=== PATIENT | female | born 1935 | race Caucasian/White ===

== ENCOUNTER 2018-10-14 07:36 | Emergency (ER) | payer MEDICARE, BC ==
[2018-10-14 07:42] VITALS: RESP 16
[2018-10-14 08:22] LABS: Basophils % (A) 1 %; Eosinophils # (A) 0.1 k/uL (0-0.7); Eosinophils % (A) 2 %; HCT 37.9 % (34.0-46.0); HGB 12.5 gm/dL (11.4-16.0); Lymphocytes % (A) 20 %; MCH 29.6 pg (25.0-35.0); MCHC 32.8 g/dL (31.0-37.0); MCV 90.2 fL (80.0-100.0); Mean Platelet Volume 7.8; Monocytes # (A) 0.4 k/uL (0-1.0); Monocytes % (A) 7 %; Neutrophils # (A) 3.4 k/uL (1.3-7.7); Neutrophils % (A) 68 %; Platelet Count 133 k/uL (150-450); RBC 4.21 m/uL (3.80-5.40)
--- NOTE | 2018-10-14 08:26 | ED ---
General Adult HPI - General Chief complaint: ENT Stated complaint: Nosebleed Time Seen by Provider: 10/14/18 07:50 Source: patient, RN notes reviewed Mode of arrival: ambulatory Limitations: no limitations - History of Present Illness Initial comments: Patient is a pleasant 83-year-old female presenting to the emergency Department with complaints of epistaxis. Onset of symptoms was around an hour prior to arrival. Epistaxis with spontaneous. No trauma. No history of chronic epistaxis. Patient is on Coumadin with history of blood clots. Patient did have her INR checked last week at 4.4. Patient states her Coumadin was held for 2 days and then restarted. Patient denies any other area of bleeding. No pain. No weakness or dyspnea. - Related Data Home Medications Medication Instructions Recorded Confirmed Bumetanide [BUMEX] 2 mg PO DAILY 10/02/15 10/14/18 Metolazone [Zaroxolyn] 2.5 mg PO TUTH 10/02/15 10/14/18 Vit C/E/Zn/Coppr/Lutein/Zeaxan 1 cap PO BID 12/12/15 10/14/18 [Preservision Areds 2 Softgel] Cholecalciferol [Vitamin D3 (25 2,000 unit PO DAILY 10/14/18 10/14/18 Mcg = 1000 Iu)] Dulaglutide [Trulicity] 1.5 mg SQ FR 10/14/18 10/14/18 INSULIN ASPART (NovoLOG) [NovoLOG 5 unit SQ AC-TID 10/14/18 10/14/18 (formulary)] Insulin Glargine,Hum.rec.anlog 21 units SQ DAILY 10/14/18 10/14/18 [Jim Clark] Magnesium 400 mg PO HS 10/14/18 10/14/18 Potassium Chloride [Klor-Con 20] 20 meq PO DAILY 10/14/18 10/14/18 Warfarin Sodium [Coumadin] 3 mg PO TUTH 10/14/18 10/14/18 Warfarin [Coumadin] 1.5 mg PO SUMOWEFRSA 10/14/18 10/14/18 sitaGLIPtin PHOS/metFORMIN HCL 1 tab PO BID 10/14/18 10/14/18 [Janumet 50-500 mg Tablet] Allergies Allergy/AdvReac Type Severity Reaction Status Date / Time azithromycin Allergy Unknown Verified 10/14/18 08:27 erythromycin base Allergy Dyspnea Verified 10/14/18 08:27 sucralfate [From Carafate] Allergy Unknown Verified 10/14/18 08:27 Phenothiazines AdvReac Severe Hallucinati Verified 10/14/18 08:27 ons heparin AdvReac blood clots Verified 10/14/18 08:27 metoclopramide HCl AdvReac Hallucinati Verified 10/14/18 08:27 [From Reglan] ons all -mycins Allergy Dyspnea Uncoded 10/14/18 07:42 Review of Systems ROS Statement: Those systems with pertinent positive or pertinent negative responses have been documented in the HPI. ROS Other: All systems not noted in ROS Statement are negative. Constitutional: Denies: fever Eyes: Denies: eye pain ENT: Reports: epistaxis. 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, LUNGS UNDER PRESSURE DUE TO OSTEOPEROSIS History of Any Multi-Drug Resistant Organisms: None Reported Past Surgical History: Cardiac Ablation, Hysterectomy, Pacemaker, Tonsillectomy Additional Past Surgical History / Comment(s): cataracts Past Anesthesia/Blood Transfusion Reactions: Previous Problems w/ Anesthesia, Motion Sickness Additional Past Anesthesia/Blood Transfusion Reaction / Comment(s): "slept for three days after anesthesia"- vertigo Type of Cardiac Device: Permanent Pacemaker Device Placement Date:: 10/01/2010 [facility] Past Psychological History: Anxiety Smoking Status: Never smoker Past Alcohol Use History: None Reported Past Drug Use History: None Reported - Past Family History Sister(s) Family Medical History: Cancer (ovariancancer) Additional Family Medical History / Comment(s): ovarian, squamous in the mouth General Exam Limitations: no limitations General appearance: alert, in no apparent distress Head exam: Present: atraumatic Eye exam: Present: normal appearance ENT exam: Present: normal oropharynx, other (Fresh blood right lower anterior septum without active bleeding.) Neck exam: Present: normal inspection Respiratory exam: Present: normal lung sounds bilaterally Cardiovascular Exam: Present: regular rate, normal rhythm, systolic murmur GI/Abdominal exam: Present: soft. Absent: tenderness Extremities exam: Present: normal inspection Neurological exam: Present: alert Psychiatric exam: Present: normal affect, normal mood Skin exam: Present: normal color Course Vital Signs 10/14/18 10/14/18 07:38 08:34 Temperature 98 F Pulse Rate 89 84 Respiratory 16 Rate Blood Pressure 161/74 108/65 O2 Sat by Pulse 97 Oximetry Medical Decision Making - Medical Decision Making Patient reevaluated and resting comfortably in bed. Patient and family updated on results and need for follow-up. No epistaxis to this point. - Lab Data Result diagrams: 10/14/18 08:10 10/14/18 08:10 Lab Results 10/14/18 10/14/18 10/14/18 Range/Units 08:10 08:10 08:10 WBC 5.0 (3.8-10.6) k/uL RBC 4.21 (3.80-5.40) m/uL Hgb 12.5 (11.4-16.0) gm/dL Hct 37.9 (34.0-46.0) % MCV 90.2 (80.0-100.0) fL MCH 29.6 (25.0-35.0) pg MCHC 32.8 (31.0-37.0) g/dL RDW 15.0 (11.5-15.5) % Plt Count 133 L (150-450) k/uL Neutrophils % 68 % Lymphocytes % 20 % Monocytes % 7 % Eosinophils % 2 % Basophils % 1 % Neutrophils # 3.4 (1.3-7.7) k/uL Lymphocytes # 1.0 (1.0-4.8) k/uL Monocytes # 0.4 (0-1.0) k/uL Eosinophils # 0.1 (0-0.7) k/uL Basophils # 0.0 (0-0.2) k/uL PT 15.4 H (9.0-12.0) sec INR 1.5 H (<1.2) APTT 26.4 (22.0-30.0) sec Sodium 140 (137-145) mmol/L Potassium 3.3 L (3.5-5.1) mmol/L Chloride 100 (98-107) mmol/L Carbon Dioxide 34 H (22-30) mmol/L Anion Gap 6 mmol/L BUN 31 H (7-17) mg/dL Creatinine 0.88 (0.52-1.04) mg/dL Est GFR (CKD-EPI)AfAm 70 (>60 ml/min/1.73 sqM) Est GFR (CKD-EPI)NonAf 61 (>60 ml/min/1.73 sqM) Glucose 105 H (74-99) mg/dL Calcium 9.5 (8.4-10.2) mg/dL Total Bilirubin 0.6 (0.2-1.3) mg/dL AST 45 H (14-36) U/L ALT 36 (9-52) U/L Alkaline Phosphatase 75 (38-126) U/L Total Protein 6.6 (6.3-8.2) g/dL Albumin 3.9 (3.5-5.0) g/dL Disposition Clinical Impression: Epistaxis Disposition: HOME SELF-CARE Condition: Stable Instructions (If sedation given, give patient instructions): Nosebleed (ED) Additional Instructions: Please follow-up with primary care physician in the beginning of the week. Please discuss with your primary care physician regarding Coumadin dosing at that time. If bleeding returns, please hold pressure with nasal clamps for at least 10 minutes. If unable to control bleeding return to emergency department. Return for uncontrolled bleeding, bleeding from other areas, weakness, worsening symptoms or other concerns. Is patient prescribed a controlled substance at d/c from ED?: No Referrals: Noemi Pope MD [Primary Care Provider] - 1-2 days Time of Disposition: 08:51
[2018-10-14 08:31] LABS: INR 1.5 (<1.2); Partial Thromboplastin Time 26.4 sec (22.0-30.0); Prothrombin Time 15.4 sec (9.0-12.0)
[2018-10-14 08:32] LABS: Albumin 3.9 g/dL (3.5-5.0); Calcium 9.5 mg/dL (8.4-10.2); Potassium 3.3 mmol/L (3.5-5.1); Total Bilirubin 0.6 mg/dL (0.2-1.3); Total Protein 6.6 g/dL (6.3-8.2)
[2018-10-14 09:05] VITALS: BP 138/70; PULSE 87; TEMP 97.8
== END 2018-10-14 09:04 | disposition home or self-care (01) ==
LOC: EC 07:36
DX: R04.0 Epistaxis (principal); R01.1 Cardiac murmur, unspecified; I48.91 Unspecified atrial fibrillation; E11.9 Type 2 diabetes mellitus without complications; E78.5 Hyperlipidemia, unspecified; Z88.1 Allergy status to other antibiotic agents; Z88.8 Allergy status to other drugs, medicaments and biological substances; Z79.01 Long term (current) use of anticoagulants; Z79.4 Long term (current) use of insulin; Z79.899 Other long term (current) drug therapy; Z85.43 Personal history of malignant neoplasm of ovary; Z86.718 Personal history of other venous thrombosis and embolism; Z86.73 Personal history of transient ischemic attack (TIA), and cerebral infarction without residual deficits; Z95.0 Presence of cardiac pacemaker; Z98.890 Other specified postprocedural states
CPT/HCPCS: 36415; 80053; 85025; 85610; 85730; 99283

== ENCOUNTER 2018-10-21 18:48 | Emergency (ER) | payer MEDICARE, BC ==
[2018-10-21 18:54] VITALS: RESP 16
[2018-10-21] MEDS ORDERED: OXYMETAZOLINE 0.05% NASL SPRAY 1 SPRAY BOTTLE NASAL STA (18:58)
--- NOTE | 2018-10-21 19:07 | ED ---
General Adult HPI - General Chief complaint: ENT Stated complaint: Nose Bleed Time Seen by Provider: 10/21/18 18:58 Source: patient, EMS, RN notes reviewed, old records reviewed Mode of arrival: EMS Limitations: no limitations - History of Present Illness Initial comments: 83-year-old female patient anticoagulated on Coumadin for atrial fibrillation presents to ED for epistaxis. Patient reports that approximately one hour prior to presentation she began bleeding from her right nare. Patient had a similar occurrence one week ago which resolved with nasal clamp. She reports that her INR was within a couple limits on Tuesday. Patient denies any complaints at this time, denies any pain, denies any shortness of breath. Systemic: Pt denies fatigue, fever/chills, rash. Pt denies weakness, night sweats, weight loss. Neuro: Pt denies headache, visual disturbances, syncope or pre-syncope. HEENT: Pt denies ocular discharge or irritation, otalgia, rhinorrhea, pharyngitis or notable lymphadenopathy. Cardiopulmonary: Pt denies chest pain, SOB, heart palpitations, dyspnea on exertion. Abdominal/GI: Pt denies abdominal pain, n/v/d. : Pt denies dysuria, burning w/ urination, frequency/urgency. Denies new onset urinary or bowel incontinence. MSK: Pt denies myalgia, loss of strength or function in extremities. Neuro: Pt denies new onset weakness, paresthesias. - Related Data Home Medications Medication Instructions Recorded Confirmed Bumetanide [BUMEX] 2 mg PO DAILY 10/02/15 10/14/18 Metolazone [Zaroxolyn] 2.5 mg PO TUTH 10/02/15 10/14/18 Vit C/E/Zn/Coppr/Lutein/Zeaxan 1 cap PO BID 12/12/15 10/14/18 [Preservision Areds 2 Softgel] Cholecalciferol [Vitamin D3 (25 2,000 unit PO DAILY 10/14/18 10/14/18 Mcg = 1000 Iu)] Dulaglutide [Trulicity] 1.5 mg SQ FR 10/14/18 10/14/18 INSULIN ASPART (NovoLOG) [NovoLOG 5 unit SQ AC-TID 10/14/18 10/14/18 (formulary)] Insulin Glargine,Hum.rec.anlog 21 units SQ DAILY 10/14/18 10/14/18 [[place]hadiao Solostar] Magnesium 400 mg PO HS 10/14/18 10/14/18 Potassium Chloride [Klor-Con 20] 20 meq PO DAILY 10/14/18 10/14/18 Warfarin Sodium [Coumadin] 3 mg PO TUTH 10/14/18 10/14/18 Warfarin [Coumadin] 1.5 mg PO SUMOWEFRSA 10/14/18 10/14/18 sitaGLIPtin PHOS/metFORMIN HCL 1 tab PO BID 10/14/18 10/14/18 [Janumet 50-500 mg Tablet] Allergies Allergy/AdvReac Type Severity Reaction Status Date / Time azithromycin Allergy Unknown Verified 10/21/18 18:56 erythromycin base Allergy Dyspnea Verified 10/21/18 18:56 sucralfate [From Carafate] Allergy Unknown Verified 10/21/18 18:56 Phenothiazines AdvReac Severe Hallucinati Verified 10/21/18 18:56 ons heparin AdvReac blood clots Verified 10/21/18 18:56 metoclopramide HCl AdvReac Hallucinati Verified 10/21/18 18:56 [From Reglan] ons all -mycins Allergy Dyspnea Uncoded 10/21/18 18:56 Review of Systems ROS Statement: Those systems with pertinent positive or pertinent negative responses have been documented in the HPI. ROS Other: All systems not noted in ROS Statement are negative. 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, LUNGS UNDER PRESSURE DUE TO OSTEOPEROSIS History of Any Multi-Drug Resistant Organisms: None Reported Past Surgical History: Cardiac Ablation, Hysterectomy, Pacemaker, Tonsillectomy Additional Past Surgical History / Comment(s): cataracts Past Anesthesia/Blood Transfusion Reactions: Previous Problems w/ Anesthesia, Motion Sickness Additional Past Anesthesia/Blood Transfusion Reaction / Comment(s): "slept for three days after anesthesia"- vertigo Type of Cardiac Device: Permanent Pacemaker Device Placement Date:: 10/01/2010 [facility] Past Psychological History: Anxiety Smoking Status: Never smoker Past Alcohol Use History: None Reported Past Drug Use History: None Reported - Past Family History Sister(s) Family Medical History: Cancer (ovariancancer) Additional Family Medical History / Comment(s): ovarian, squamous in the mouth General Exam - General Exam Comments Initial Comments: Constitutional: NAD, AOX3, Pt has pleasant affect. HEENT: NC/AT, trachea midline, neck supple, no lymphadenopathy. Posterior pharynx non erythematous, without exudates. External ears appear normal, without discharge. Mucous membranes moist. Eyes PERRLA, EOM intact. There is no scleral icterus. No pallor noted. Dried blood noted in right nare, left nare wnl. Cardiopulmonary: RRR, no murmurs, rubs or gallops, no JVD noted. Lungs CTAB in anterior and posterior lozano. No peripheral edema. Abdominal exam: Abdomen soft and non-distended. Abdomen non-tender to palpation in all 4 quadrants. Bowel sounds active in LLQ. No hepatosplenomegaly. No ecchymosis Neuro: CN II-XII grossly intact. No nuchal rigidity. No raccon eyes, no carpenter sign, no hemotympanum. No cervical spinal tenderness. MSK: No posterior calf tenderness bilaterally, homans sign negative bilaterally. Posterior tibialis and radial pulse +2 bilaterally. Sensation intact in upper and lower extremities. Full active ROM in upper and lower extremities, 5/5 stregnth. Limitations: no limitations Course Vital Signs 10/21/18 18:49 Temperature 98.4 F Pulse Rate 77 Respiratory 16 Rate Blood Pressure 113/76 O2 Sat by Pulse 95 Oximetry Medical Decision Making - Medical Decision Making 83-year-old female patient anticoagulated on Coumadin for atrial fibrillation presents to ED for epistaxis. Patient reports that approximately one hour prior to presentation she began bleeding from her right nare. Patient had a similar occurrence one week ago which resolved with nasal clamp. She reports that her INR was within a couple limits on Tuesday. Patient denies any complaints at this time, denies any pain, denies any shortness of breath. Patient vital signs stable, afebrile. Physical exam displayed dried blood noted in R nare. Laboratory investigations non-impressive. INR 1.8. Epistaxis resolved after Afrin, nasal clamp. Patient discharged, follow up with primary care provider, will return to ER if condition worsens. Case discussed with Dr. Hallman. - Lab Data Result diagrams: 10/21/18 19:24 10/21/18 19:24 Lab Results 10/21/18 10/21/18 10/21/18 Range/Units 19:24 19:24 19:24 WBC 6.3 (3.8-10.6) k/uL RBC 3.88 (3.80-5.40) m/uL Hgb 11.4 (11.4-16.0) gm/dL Hct 34.8 (34.0-46.0) % MCV 89.5 (80.0-100.0) fL MCH 29.5 (25.0-35.0) pg MCHC 32.9 (31.0-37.0) g/dL RDW 14.1 (11.5-15.5) % Plt Count 144 L (150-450) k/uL Neutrophils % 68 % Lymphocytes % 21 % Monocytes % 7 % Eosinophils % 2 % Basophils % 0 % Neutrophils # 4.2 (1.3-7.7) k/uL Lymphocytes # 1.3 (1.0-4.8) k/uL Monocytes # 0.5 (0-1.0) k/uL Eosinophils # 0.1 (0-0.7) k/uL Basophils # 0.0 (0-0.2) k/uL PT 17.5 H (9.0-12.0) sec INR 1.8 H (<1.2) APTT 28.5 (22.0-30.0) sec Sodium 139 (137-145) mmol/L Potassium 3.5 (3.5-5.1) mmol/L Chloride 99 (98-107) mmol/L Carbon Dioxide 32 H (22-30) mmol/L Anion Gap 8 mmol/L BUN 39 H (7-17) mg/dL Creatinine 0.97 (0.52-1.04) mg/dL Est GFR (CKD-EPI)AfAm 62 (>60 ml/min/1.73 sqM) Est GFR (CKD-EPI)NonAf 54 (>60 ml/min/1.73 sqM) Glucose 127 H (74-99) mg/dL Calcium 9.4 (8.4-10.2) mg/dL Total Bilirubin 0.3 (0.2-1.3) mg/dL AST 31 (14-36) U/L ALT 26 (9-52) U/L Alkaline Phosphatase 60 (38-126) U/L Total Protein 6.3 (6.3-8.2) g/dL Albumin 3.8 (3.5-5.0) g/dL Disposition Clinical Impression: Anterior epistaxis Disposition: HOME SELF-CARE Condition: Stable Instructions (If sedation given, give patient instructions): Nosebleed (ED) Additional Instructions: Patient to adhere to previously discussed treatment plan and will take medication(s) as directed. Patient to follow up with PCP in 1-2 days. Patient to return to ED if symptoms do not improve. Follow-up with primary care provider in 1-2 days. Return to ER condition worsens. Is patient prescribed a controlled substance at d/c from ED?: No Referrals: Noemi Pope MD [Primary Care Provider] - 1-2 days
[2018-10-21 19:43] LABS: Basophils % (A) 0 %; Eosinophils # (A) 0.1 k/uL (0-0.7); Eosinophils % (A) 2 %; HCT 34.8 % (34.0-46.0); HGB 11.4 gm/dL (11.4-16.0); Lymphocytes # (A) 1.3 k/uL (1.0-4.8); Lymphocytes % (A) 21 %; MCH 29.5 pg (25.0-35.0); MCHC 32.9 g/dL (31.0-37.0); MCV 89.5 fL (80.0-100.0); Mean Platelet Volume 7.5; Monocytes # (A) 0.5 k/uL (0-1.0); Monocytes % (A) 7 %; Neutrophils # (A) 4.2 k/uL (1.3-7.7); Neutrophils % (A) 68 %; Platelet Count 144 k/uL (150-450); RBC 3.88 m/uL (3.80-5.40); RDW 14.1 % (11.5-15.5); WBC 6.3 k/uL (3.8-10.6)
[2018-10-21 19:57] LABS: INR 1.8 (<1.2); Partial Thromboplastin Time 28.5 sec (22.0-30.0); Prothrombin Time 17.5 sec (9.0-12.0)
[2018-10-21 20:19] LABS: Albumin 3.8 g/dL (3.5-5.0); Calcium 9.4 mg/dL (8.4-10.2); Potassium 3.5 mmol/L (3.5-5.1); Total Bilirubin 0.3 mg/dL (0.2-1.3); Total Protein 6.3 g/dL (6.3-8.2)
[2018-10-21 20:57] VITALS: BP 109/59; PULSE 84; TEMP 97.2
== END 2018-10-21 20:50 | disposition home or self-care (01) ==
LOC: EC 18:48
DX: R04.0 Epistaxis (principal); I48.91 Unspecified atrial fibrillation; E11.9 Type 2 diabetes mellitus without complications; Z79.4 Long term (current) use of insulin; Z79.01 Long term (current) use of anticoagulants; Z79.899 Other long term (current) drug therapy; Z88.1 Allergy status to other antibiotic agents; Z88.8 Allergy status to other drugs, medicaments and biological substances; Z95.0 Presence of cardiac pacemaker; Z86.73 Personal history of transient ischemic attack (TIA), and cerebral infarction without residual deficits; Z86.718 Personal history of other venous thrombosis and embolism; Z85.43 Personal history of malignant neoplasm of ovary
CPT/HCPCS: 36415; 80053; 85025; 85610; 85730; 99284

== ENCOUNTER 2019-01-30 07:43 | Inpatient (IN) | payer MEDICARE, BC ==
--- NOTE | 2019-01-30 08:24 | XR ---
KUB HISTORY: Bloating and constipation Frontal KUB submitted and correlated to prior exam 11/12/2014 There are multiple air-fluid levels with gas distended loops of bowel present. Intracardiac pacemaker leads are present. Bone mineralization is reduced. There are dense vascular calcifications present. Retained fecal debris is present at the level of the rectum. No evident pneumoperitoneum. Suspect the heart is enlarged. IMPRESSION: Correlate for bowel obstruction, possible fecal impaction, additional findings above.
--- NOTE | 2019-01-30 08:25 | ED ---
Abdominal Pain HPI - General Chief Complaint: Abdominal Pain Stated Complaint: constipation Time Seen by Provider: 01/30/19 07:46 Source: patient, EMS, RN notes reviewed Mode of arrival: EMS Limitations: no limitations - History of Present Illness Initial Comments: This an 84-year-old female presents emergency Department chief complaint of abdominal bloating, constipation. She states she has not had a bowel movement in approximately. She states that she has taken at [place] relax but states that she also takes something daily with stool softer and it. Patient denies any dysuria, hematuria patient states that she feels that she has to go but she's had no stool output. Patient currently resides at [facility]. She denies any severe abdominal pain, chest pain or shortness breath. Patient denies any neck pain, flank pain - Related Data Home Medications Medication Instructions Recorded Confirmed Bumetanide [BUMEX] 2 mg PO DAILY 10/02/15 01/30/19 Metolazone [Zaroxolyn] 2.5 mg PO TUTH 10/02/15 01/30/19 Vit C/E/Zn/Coppr/Lutein/Zeaxan 1 cap PO BID 12/12/15 01/30/19 [Preservision Areds 2 Softgel] Cholecalciferol [Vitamin D3 (25 2,000 unit PO DAILY 10/14/18 01/30/19 Mcg = 1000 Iu)] Dulaglutide [Trulicity] 1.5 mg SQ FR 10/14/18 01/30/19 INSULIN ASPART (NovoLOG) [NovoLOG 5 unit SQ AC-TID 10/14/18 01/30/19 (formulary)] Insulin Glargine,Hum.rec.anlog 21 units SQ DAILY 10/14/18 01/30/19 [[place]matt Solostrandal] Potassium Chloride [Klor-Con 20] 20 meq PO DAILY 10/14/18 01/30/19 Warfarin Sodium [Coumadin] 3 mg PO TUTH 10/14/18 01/30/19 Warfarin [Coumadin] 1.5 mg PO SUMOWEFRSA 10/14/18 01/30/19 sitaGLIPtin PHOS/metFORMIN HCL 1 tab PO BID 10/14/18 01/30/19 [Janumet 50-500 mg Tablet] Magnesium Oxide [Mag-Ox] 400 mg PO HS 01/30/19 01/30/19 Allergies Allergy/AdvReac Type Severity Reaction Status Date / Time azithromycin Allergy Unknown Verified 01/30/19 08:02 erythromycin base Allergy Dyspnea Verified 01/30/19 08:02 sucralfate [From Carafate] Allergy Unknown Verified 01/30/19 08:02 Phenothiazines AdvReac Severe Hallucinati Verified 01/30/19 08:02 ons heparin AdvReac blood clots Verified 01/30/19 08:02 metoclopramide HCl AdvReac Hallucinati Verified 01/30/19 08:02 [From Reglan] ons all -mycins Allergy Dyspnea Uncoded 01/30/19 08:02 Review of Systems ROS Statement: Those systems with pertinent positive or pertinent negative responses have been documented in the HPI. ROS Other: All systems not noted in ROS Statement are negative. 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, LUNGS UNDER PRESSURE DUE TO OSTEOPEROSIS History of Any Multi-Drug Resistant Organisms: None Reported Past Surgical History: Cardiac Ablation, Hysterectomy, Pacemaker, Tonsillectomy Additional Past Surgical History / Comment(s): cataracts Past Anesthesia/Blood Transfusion Reactions: Previous Problems w/ Anesthesia, Motion Sickness Additional Past Anesthesia/Blood Transfusion Reaction / Comment(s): "slept for three days after anesthesia"- vertigo Type of Cardiac Device: Permanent Pacemaker Device Placement Date:: 10/01/2010 [facility] Past Psychological History: Anxiety Smoking Status: Never smoker Past Alcohol Use History: None Reported Past Drug Use History: None Reported - Past Family History Sister(s) Family Medical History: Cancer (ovariancancer) Additional Family Medical History / Comment(s): ovarian, squamous in the mouth General Exam Limitations: no limitations General appearance: alert, in no apparent distress Head exam: Present: atraumatic, normocephalic, normal inspection Eye exam: Present: normal appearance, PERRL, EOMI. Absent: scleral icterus, conjunctival injection, periorbital swelling ENT exam: Present: normal exam, mucous membranes moist Neck exam: Present: normal inspection. Absent: tenderness, meningismus, lymphadenopathy Respiratory exam: Present: normal lung sounds bilaterally. Absent: respiratory distress, wheezes, rales, rhonchi, stridor Cardiovascular Exam: Present: regular rate, normal rhythm, normal heart sounds. Absent: systolic murmur, diastolic murmur, rubs, gallop, clicks GI/Abdominal exam: Present: soft, distended, tenderness (Minimal), normal bowel sounds. Absent: guarding, rebound, rigid Back exam: Absent: CVA tenderness (R), CVA tenderness (L) Neurological exam: Present: alert Skin exam: Present: warm, dry, intact, normal color. Absent: rash Course Vital Signs 01/30/19 07:45 Temperature 98.0 F Pulse Rate 79 Respiratory 18 Rate Blood Pressure 130/68 O2 Sat by Pulse 97 Oximetry Procedures - Rectal Disimpaction Consent Obtained: verbal consent Indication: fecal impaction Procedural Sedation: No Sedation/Analgesia: none Technique: manual disimpaction with gloved finger Result: significant stool output Complications: none Patient Tolerated Procedure: well, no complications Medical Decision Making - Medical Decision Making Patient's x-rays showed possibility of fecal stasis, infection versus obstruction. Patient CT shows evidence of large fecal impaction, possible mechanical obstruction. Patient will be admitted to Dr. Torres service patient was given enema after disimpaction - Lab Data Result diagrams: 01/30/19 08:50 01/30/19 08:50 Lab Results 01/30/19 01/30/19 Range/Units 08:50 08:50 WBC 6.8 (3.8-10.6) k/uL RBC 3.85 (3.80-5.40) m/uL Hgb 11.6 (11.4-16.0) gm/dL Hct 34.5 (34.0-46.0) % MCV 89.5 (80.0-100.0) fL MCH 30.1 (25.0-35.0) pg MCHC 33.6 (31.0-37.0) g/dL RDW 14.1 (11.5-15.5) % Plt Count 149 L (150-450) k/uL Neutrophils % 77 % Lymphocytes % 13 % Monocytes % 8 % Eosinophils % 1 % Basophils % 1 % Neutrophils # 5.2 (1.3-7.7) k/uL Lymphocytes # 0.9 L (1.0-4.8) k/uL Monocytes # 0.5 (0-1.0) k/uL Eosinophils # 0.0 (0-0.7) k/uL Basophils # 0.0 (0-0.2) k/uL Sodium 138 (137-145) mmol/L Potassium 4.2 (3.5-5.1) mmol/L Chloride 100 (98-107) mmol/L Carbon Dioxide 33 H (22-30) mmol/L Anion Gap 5 mmol/L BUN 35 H (7-17) mg/dL Creatinine 0.70 (0.52-1.04) mg/dL Est GFR (CKD-EPI)AfAm >90 (>60 ml/min/1.73 sqM) Est GFR (CKD-EPI)NonAf 79 (>60 ml/min/1.73 sqM) Glucose 86 (74-99) mg/dL Calcium 8.8 (8.4-10.2) mg/dL Total Bilirubin 0.4 (0.2-1.3) mg/dL AST 58 H (14-36) U/L ALT 64 H (9-52) U/L Alkaline Phosphatase 70 (38-126) U/L Total Protein 6.1 L (6.3-8.2) g/dL Albumin 3.5 (3.5-5.0) g/dL Disposition Clinical Impression: Bowel obstruction, Constipation Disposition: ADMITTED IP TO THIS HOSP Condition: Fair Referrals: Noemi Pope MD [Primary Care Provider] - 1-2 days
[2019-01-30 09:00] LABS: Basophils % (A) 1 %; Eosinophils % (A) 1 %; HCT 34.5 % (34.0-46.0); HGB 11.6 gm/dL (11.4-16.0); Lymphocytes # (A) 0.9 k/uL (1.0-4.8); Lymphocytes % (A) 13 %; MCH 30.1 pg (25.0-35.0); MCHC 33.6 g/dL (31.0-37.0); MCV 89.5 fL (80.0-100.0); Mean Platelet Volume 6.6; Monocytes # (A) 0.5 k/uL (0-1.0); Monocytes % (A) 8 %; Neutrophils # (A) 5.2 k/uL (1.3-7.7); Neutrophils % (A) 77 %; Platelet Count 149 k/uL (150-450); RBC 3.85 m/uL (3.80-5.40); RDW 14.1 % (11.5-15.5); WBC 6.8 k/uL (3.8-10.6)
[2019-01-30 09:28] LABS: Albumin 3.5 g/dL (3.5-5.0); Chloride 100 mmol/L (98-107); Glucose 86 mg/dL (74-99); Potassium 4.2 mmol/L (3.5-5.1); Total Protein 6.1 g/dL (6.3-8.2)
[2019-01-30 09:29] LABS: ALT 64 U/L (9-52); AST 58 U/L (14-36); African American GFR (CKD) >90 (>60 ml/min/1.73 sqM); Alkaline Phosphatase 70 U/L (38-126); Anion Gap 5 mmol/L; Blood Urea Nitrogen 35 mg/dL (7-17); Calcium 8.8 mg/dL (8.4-10.2); Carbon Dioxide 33 mmol/L (22-30); Sodium 138 mmol/L (137-145); Total Bilirubin 0.4 mg/dL (0.2-1.3)
--- NOTE | 2019-01-30 10:22 | CT ---
EXAMINATION TYPE: CT abdomen pelvis w con DATE OF EXAM: 01/30/2019 HISTORY: Abdominal bloating and constipation. Concern for bowel obstruction. CT DLP: 558.4mGycm Automated Exposure Control for Dose Reduction was Utilized. CONTRAST: CT scan of the abdomen and pelvis is performed with IV Contrast, patient injected with 100 mL of Isov ue 300. COMPARISON: 12/12/2015. FINDINGS: Exam is limited as the patient is cachectic and there is paucity of intra-abdominal fat. LUNG BASES: There is a right basilar consolidation seen medially and left basilar consolidation. Both are favored to represent atelectasis given their enhancing component. Trace left pleural effusion is also seen. Leftward shift of the mediastinum is noted of uncertain etiology. Right middle lobe conso lidation also appears as atelectasis. Heart is enlarged with postoperative change. There appears to b e aneurysmal dilatation of the aortic root measuring 5.1 cm. LIVER/GB: Simple hepatic cyst is seen of the right hepatic lobe measuring 7 mm. Left hepatic lobe cys t measures 1.7 cm. Cholelithiasis is seen. PANCREAS: No significant abnormality is seen. SPLEEN: Benign granulomas are seen of the spleen. ADRENALS: No significant abnormality is seen. KIDNEYS: Nonobstructing left renal calculi are seen (4 in number measuring up to 4 mm). There is full ness of the left renal pelvis, pelviectasis without keisha hydronephrosis. The kidneys enhance symmetr ically. Probable right renal cyst is too small to accurately characterize in the superior pole on del ayed imaging. BOWEL: Large fecal wall formed stool ball measures 7.7 x 7.3 cm. There is thickening of the rectum me asuring up to 1.3 cm. No discrete ulcerations are seen. Large degree colonic fecal stasis is noted th roughout. Sigmoid colon is nondilated measuring only up to 3.5 cm. There is suspected rectal prolapse . Correlate with physical exam. LYMPH NODES: Extremely limited evaluation for adenopathy given paucity of intra-abdominal fat and opp osing bowel loops. OSSEOUS STRUCTURES: Diffuse osseous demineralization and extensive multilevel degenerative changes of the spine. Compression deformities are seen at T12, T11, T10, T9, and T8 some of which were seen on the exam of 2016. The compression deformities at T12, T10, and T8 were seen on the exam of 2016. OTHER: Mild degree anasarca. IMPRESSION: 1. Severe degree colonic fecal stasis with large rectal fecal ball measuring 7.7 cm dilating the rect um and creating bowel wall thickening concerning for forming stercoral colitis. No current mucosal ul cerations are seen. No proximal dilated bowel to suggest mechanical obstruction at this time however diffuse ileus is seen with distended loops of large and small bowel throughout the entirety abdomen s omewhat limiting the evaluation of the remainder the abdomen. 2. Aneurysmal dilatation of the aortic root measuring up to 5.1 cm. 3. Multifocal consolidations of the lung bases, likely multifocal atelectasis. 4. Multiple nonobstructing left renal calculi. 5. Multilevel compression deformities, some of which were seen in 2016. Correlate for jania martinnes s.
[2019-01-30] MEDS ORDERED: ONDANSETRON 4 MG/2 ML VIAL IVP PRN (11:21)
[2019-01-30] MEDS ORDERED: NALOXONE 0.4 MG/ML 1 ML VIAL IV PRN (11:21)
[2019-01-30 12:11] LABS: Glucose,Whole Blood 55 mg/dL (75-99)
[2019-01-30 12:39] LABS: Glucose,Whole Blood 92 mg/dL (75-99)
[2019-01-30] MEDS: SODIUM CHLORIDE 0.9% 1,000 ML IV SCH (15:08)
[2019-01-30 16:32] LABS: Amorphous Sediment,Urine Moderate /hpf; Appearance,Urine Turbid (Clear); Bilirubin,Urine Negative (Negative); Blood,Urine Negative (Negative); Color,Urine Yellow; Glucose,Urine (UA) Negative (Negative); Ketones,Urine Negative (Negative); Leukocyte Esterase,Urine Moderate (Negative); Nitrite,Urine Negative (Negative); PH, Urine 8.5 (5.0-8.0); Protein,Urine Trace (Negative); Urobilinogen,Urine <2.0 mg/dL (<2.0)
[2019-01-30 16:40] LABS: Specific Gravity,Urine 1.049 (1.001-1.035)
[2019-01-30 20:16] LABS: Glucose,Whole Blood 46 mg/dL (75-99)
[2019-01-30 20:27] LABS: Glucose,Whole Blood 60 mg/dL (75-99)
[2019-01-30 20:55] LABS: Glucose,Whole Blood 118 mg/dL (75-99)
[2019-01-31 07:05] LABS: Glucose,Whole Blood 58 mg/dL (75-99)
[2019-01-31] MEDS: INSULIN ASPART (NovoLOG) 100 UNIT/ML VIAL SQ SCH ×3 (07:20→17:23)
[2019-01-31] MEDS: INSULIN DETEMIR (LEVEMIR) 100 UNIT/ML SYR SQ SCH (07:20)
[2019-01-31 07:27] LABS: Glucose,Whole Blood 70 mg/dL (75-99)
[2019-01-31] MEDS: LINAGLIPTIN 5 MG TABLET PO SCH (08:21)
[2019-01-31] MEDS: metFORMIN 500 MG TAB PO SCH ×2 (08:21→21:56)
[2019-01-31] MEDS: POTASSIUM CHLORIDE ER 20 MEQ TAB.ER PO SCH (08:24)
[2019-01-31] MEDS: FAMOTIDINE 20 MG TAB PO SCH (08:24)
[2019-01-31] MEDS: BUMETANIDE 1 MG TAB PO SCH (08:24)
[2019-01-31] MEDS: CHOLECALCIFEROL 1,000 UNIT TAB PO SCH (08:24)
[2019-01-31 08:28] LABS: Basophils % (A) 0 %; Eosinophils # (A) 0.1 k/uL (0-0.7); Eosinophils % (A) 1 %; HGB 11.4 gm/dL (11.4-16.0); Lymphocytes # (A) 0.8 k/uL (1.0-4.8); Lymphocytes % (A) 13 %; MCH 29.4 pg (25.0-35.0); MCHC 31.8 g/dL (31.0-37.0); MCV 92.6 fL (80.0-100.0); Mean Platelet Volume 7.2; Monocytes # (A) 0.4 k/uL (0-1.0); Monocytes % (A) 6 %; Neutrophils # (A) 4.5 k/uL (1.3-7.7); Neutrophils % (A) 77 %; Platelet Count 154 k/uL (150-450); RBC 3.88 m/uL (3.80-5.40); RDW 14.5 % (11.5-15.5); WBC 5.8 k/uL (3.8-10.6)
[2019-01-31 08:35] LABS: ALT 54 U/L (9-52); AST 43 U/L (14-36); African American GFR (CKD) >90 (>60 ml/min/1.73 sqM); Albumin 3.3 g/dL (3.5-5.0); Alkaline Phosphatase 74 U/L (38-126); Anion Gap 3 mmol/L; Blood Urea Nitrogen 18 mg/dL (7-17); Calcium 8.5 mg/dL (8.4-10.2); Carbon Dioxide 30 mmol/L (22-30); Chloride 105 mmol/L (98-107); Glucose 134 mg/dL (74-99); Potassium 4.2 mmol/L (3.5-5.1); Sodium 138 mmol/L (137-145); Total Bilirubin 0.6 mg/dL (0.2-1.3); Total Protein 5.9 g/dL (6.3-8.2)
[2019-01-31] MEDS: SODIUM CHLORIDE 0.9% 1,000 ML IV SCH ×2 (08:39→15:12)
[2019-01-31 08:45] LABS: INR 2.7 (<1.2)
[2019-01-31] MEDS ORDERED: NON FORMULARY DRUG (Vit C/E/Zn/Coppr/Lutein/Zeaxan [Preservision Areds 2 Softgel] 1 CAP) PO SCH (09:00)
[2019-01-31 09:28] VITALS: BMI 22.6
[2019-01-31 11:27] LABS: Glucose,Whole Blood 140 mg/dL (75-99)
[2019-01-31] MEDS: SENNOSIDES-DOCUSATE SODIUM 1 EACH TAB PO SCH ×2 (12:29→21:56)
--- NOTE | 2019-01-31 12:49 | P.GSCN ---
<Audelia Rolon - Last Filed: 01/31/19 12:45> History of Present Illness Consult date: 01/31/19 Reason for Consult: sbo Requesting physician: Noemi Pope History of present illness: CHIEF COMPLAINT: Constipation HISTORY OF PRESENT ILLNESS: 84-year-old female with a history of constipation who presented to the ER with a chief complaint of abdominal pain. Patient reports she has not had a bowel movement in a few days. She usually takes a combination laxative/stool softener over the counter but she ran out of them and her went to the stool and only got her a stool softener. She states she tried it for a couple days but it did not have any significant stool output. Denies nausea or vomiting. Denies fever or chills. PAST MEDICAL HISTORY: See list. PAST SURGICAL HISTORY: See list. MEDICATIONS: See list. ALLERGIES: See list. SOCIAL HISTORY: No illicit drug use. REVIEW OF SYSTEMS: CONSTITUTIONAL: Denies fever or chills. HEENT: Denies blurred vision, vision changes, or eye pain. Denies hemoptysis ENDOCRINE: Denies heat or cold intolerance. CARDIOVASCULAR: Denies chest pain or pressure. RESPIRATORY: No shortness of breath. GASTROINTESTINAL: See HPI for pertinent findings NEURO: Denies history of seizures. PSYCH: No depression or suicidal ideation HEMATOLOGIC: Denies bleeding disorders. LYMPHATIC: The patient denies any lumps and bumps around the neck. GENITOURINARY: Denies any blood in urine or increased urinary frequency. MUSCULOSKELETAL: Denies myalgias. Denies joint swelling. Denies decreased range of motion beyond patients baseline. SKIN: Denies pruitis. Denies rash. PHYSICAL EXAM: VITAL SIGNS: Reviewed GENERAL: Well-developed in no acute distress. HEENT: No sclera icterus. Extraocular movements grossly intact. Moist buccal mucosa. Head is atraumatic, normocephalic. Hears conversational speech. No nasal drainage. NECK: Supple without lymphadenopathy. CHEST: Non-labored respirations and equal bilateral excursions. CARDIOVASCULAR: Regular rate with regular rhythm. Palpable 2+ radial pulses. ABDOMEN: Soft. Distended, but patient reports this is her baseline. Nontender. Positive bowel sounds. MUSCULOSKELETAL: No clubbing, cyanosis or edema. NEUROLOGIC: No focal or lateralizing signs. Cranial nerves II through XII grossly intact. PSYCH: Appropriate affect. Alert and oriented to person, place and time. SKIN: Well perfused. Good skin turgor. LABORATORY DATA: WBC 5.8. Hemoglobin 11.4. Platelet count 154. INR 2.7. Potassium 4.2. BUN 18. Creatinine 0.69. IMAGING: CT abdomen and pelvis: Severe degree of colonic fecal stasis with large rectal fecal ball measuring 7.7 cm dilated in the rectum increasing bowel wall thickening concerning for forming stercoral colitis. No proximal dilated bowel to suggest mechanical obstruction at this time. However diffuse ileus is seen at distended loops of large and above throughout the entirety abdomen somewhat limiting the evaluation of the remainder of the abdomen. ASSESSMENT: 1. Fecal impaction 2. Chronic constipation PLAN: Patient received milk of molasses enema yesterday. She has been having multiple bowel movements. Begin Senokot-S. This should be continued at discharge Increase fluid intake to prevent constipation Patient educated on milk of molasses enemas as needed on an outpatient basis when she begins feeling constipated Begin clear liquid diet. Advance as tolerated No surgical intervention recommended Nurse practitioner note has been reviewed by physician. Signing provider agrees with the documented findings, assessment, and plan of care. 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 History of Any Multi-Drug Resistant Organisms: None Reported Past Surgical History: AICD, Cardiac Ablation, EPS, Hysterectomy, Pacemaker, T onsillectomy Additional Past Surgical History / Comment(s): AICD-pt cannot recall year it was placed but believes it was done in [place], [place], pacemaker, total hysterectomy, cataracts removed, colonoscopy-pre cancerous polyps, skin cancer removals. Past Anesthesia/Blood Transfusion Reactions: Previous Problems w/ Anesthesia, Motion Sickness Additional Past Anesthesia/Blood Transfusion Reaction / Comm: "slept for three days after anesthesia"- vertigo Type of Cardiac Device: Permanent Pacemaker, AICD Device Placement Date:: 10/01/2010 [facility]-pacer. Pt does not know year AICD placed. Smoking Status: Never smoker - Past Family History Father Family Medical History: CVA/TIA Sister(s) Family Medical History: Cancer Additional Family Medical History / Comment(s): ovarian, squamous in the mouth Medications and Allergies Home Medications Medication Instructions Recorded Confirmed Type Bumetanide [BUMEX] 2 mg PO DAILY 10/02/15 01/30/19 History Metolazone [Zaroxolyn] 2.5 mg PO TUTH 10/02/15 01/30/19 History Vit C/E/Zn/Coppr/Lutein/Zeaxan 1 cap PO BID 12/12/15 01/30/19 History [Preservision Areds 2 Softgel] Cholecalciferol [Vitamin D3 (25 2,000 unit PO DAILY 10/14/18 01/30/19 History Mcg = 1000 Iu)] Dulaglutide [Trulicity] 1.5 mg SQ FR 10/14/18 01/30/19 History INSULIN ASPART (NovoLOG) [NovoLOG 5 unit SQ AC-TID 10/14/18 01/30/19 History (formulary)] Insulin Glargine,Hum.rec.anlog 21 units SQ DAILY 10/14/18 01/30/19 History [Jim Clark] Potassium Chloride [Klor-Con 20] 20 meq PO DAILY 10/14/18 01/30/19 History Warfarin Sodium [Coumadin] 3 mg PO TUTH 10/14/18 01/30/19 History Warfarin [Coumadin] 1.5 mg PO SUMOWEFRSA 10/14/18 01/30/19 History sitaGLIPtin PHOS/metFORMIN HCL 1 tab PO BID 10/14/18 01/30/19 History [Janumet 50-500 mg Tablet] Magnesium Oxide [Mag-Ox] 400 mg PO HS 01/30/19 01/30/19 History Cefuroxime [Ceftin] 250 mg PO BID #10 tablet 02/01/19 Rx Polyethylene Glycol 3350 [Miralax] 17 gm PO DAILY #30 packet 02/01/19 Rx Sennosides-Docusate Sodium 2 each PO BID tab 02/01/19 Rx [Senokot-S] Allergies Allergy/AdvReac Type Severity Reaction Status Date / Time azithromycin Allergy Unknown Verified 01/30/19 08:02 erythromycin base Allergy Dyspnea Verified 01/30/19 08:02 sucralfate [From Carafate] Allergy Unknown Verified 01/30/19 08:02 Phenothiazines AdvReac Severe Hallucinati Verified 01/30/19 08:02 ons heparin AdvReac blood clots Verified 01/30/19 08:02 metoclopramide HCl AdvReac Hallucinati Verified 01/30/19 08:02 [From Reglan] ons all -mycins Allergy Dyspnea Uncoded 01/30/19 08:02 Surgical - Exam Vital Signs Temp Pulse Resp BP Pulse Ox 98.0 F 79 18 130/68 97 01/30/19 07:45 01/30/19 07:45 01/30/19 07:45 01/30/19 07:45 01/30/19 07:45 Results - Labs 01/31/19 07:58 01/31/19 07:58 Abnormal Lab Results - Last 24 Hours (Table) 01/30/19 01/30/19 01/30/19 Range/Units 16:00 20:12 20:26 Lymphocytes # (1.0-4.8) k/uL PT (9.0-12.0) sec INR (<1.2) BUN (7-17) mg/dL Glucose (74-99) mg/dL POC Glucose (mg/dL) 46 L 60 L (75-99) mg/dL AST (14-36) U/L ALT (9-52) U/L Total Protein (6.3-8.2) g/dL Albumin (3.5-5.0) g/dL Urine Appearance Turbid H (Clear) Urine pH 8.5 H (5.0-8.0) Ur Specific [place] 1.049 H (1.001-1.035) Urine Protein Trace H (Negative) Ur Leukocyte Esterase Moderate H (Negative) Urine WBC 23 H (0-5) /hpf Amorphous Sediment Moderate H (None) /hpf 01/30/19 01/31/19 01/31/19 Range/Units 20:54 07:04 07:25 Lymphocytes # (1.0-4.8) k/uL PT (9.0-12.0) sec INR (<1.2) BUN (7-17) mg/dL Glucose (74-99) mg/dL POC Glucose (mg/dL) 118 H 58 L 70 L (75-99) mg/dL AST (14-36) U/L ALT (9-52) U/L Total Protein (6.3-8.2) g/dL Albumin (3.5-5.0) g/dL Urine Appearance (Clear) Urine pH (5.0-8.0) Ur Specific [place] (1.001-1.035) Urine Protein (Negative) Ur Leukocyte Esterase (Negative) Urine WBC (0-5) /hpf Amorphous Sediment (None) /hpf 01/31/19 01/31/19 01/31/19 Range/Units 07:58 07:58 07:58 Lymphocytes # 0.8 L (1.0-4.8) k/uL PT 26.0 H (9.0-12.0) sec INR 2.7 H (<1.2) BUN 18 H (7-17) mg/dL Glucose 134 H (74-99) mg/dL POC Glucose (mg/dL) (75-99) mg/dL AST 43 H (14-36) U/L ALT 54 H (9-52) U/L Total Protein 5.9 L (6.3-8.2) g/dL Albumin 3.3 L (3.5-5.0) g/dL Urine Appearance (Clear) Urine pH (5.0-8.0) Ur Specific [place] (1.001-1.035) Urine Protein (Negative) Ur Leukocyte Esterase (Negative) Urine WBC (0-5) /hpf Amorphous Sediment (None) /hpf 01/31/19 Range/Units 11:25 Lymphocytes # (1.0-4.8) k/uL PT (9.0-12.0) sec INR (<1.2) BUN (7-17) mg/dL Glucose (74-99) mg/dL POC Glucose (mg/dL) 140 H (75-99) mg/dL AST (14-36) U/L ALT (9-52) U/L Total Protein (6.3-8.2) g/dL Albumin (3.5-5.0) g/dL Urine Appearance (Clear) Urine pH (5.0-8.0) Ur Specific [place] (1.001-1.035) Urine Protein (Negative) Ur Leukocyte Esterase (Negative) Urine WBC (0-5) /hpf Amorphous Sediment (None) /hpf Microbiology - Last 24 Hours (Table) 01/30/19 16:00 Urine Culture - Preliminary Urine,Voided Diabetes panel 01/31/19 Range/Units 07:58 Sodium 138 (137-145) mmol/L Potassium 4.2 (3.5-5.1) mmol/L Chloride 105 (98-107) mmol/L Carbon Dioxide 30 (22-30) mmol/L BUN 18 H (7-17) mg/dL Creatinine 0.69 (0.52-1.04) mg/dL Glucose 134 H (74-99) mg/dL Calcium 8.5 (8.4-10.2) mg/dL AST 43 H (14-36) U/L ALT 54 H (9-52) U/L Alkaline Phosphatase 74 (38-126) U/L Total Protein 5.9 L (6.3-8.2) g/dL Albumin 3.3 L (3.5-5.0) g/dL Calcium panel 01/31/19 Range/Units 07:58 Calcium 8.5 (8.4-10.2) mg/dL Albumin 3.3 L (3.5-5.0) g/dL Pituitary panel 01/31/19 Range/Units 07:58 Sodium 138 (137-145) mmol/L Potassium 4.2 (3.5-5.1) mmol/L Chloride 105 (98-107) mmol/L Carbon Dioxide 30 (22-30) mmol/L BUN 18 H (7-17) mg/dL Creatinine 0.69 (0.52-1.04) mg/dL Glucose 134 H (74-99) mg/dL Calcium 8.5 (8.4-10.2) mg/dL Adrenal panel 01/31/19 Range/Units 07:58 Sodium 138 (137-145) mmol/L Potassium 4.2 (3.5-5.1) mmol/L Chloride 105 (98-107) mmol/L Carbon Dioxide 30 (22-30) mmol/L BUN 18 H (7-17) mg/dL Creatinine 0.69 (0.52-1.04) mg/dL Glucose 134 H (74-99) mg/dL Calcium 8.5 (8.4-10.2) mg/dL Total Bilirubin 0.6 (0.2-1.3) mg/dL AST 43 H (14-36) U/L ALT 54 H (9-52) U/L Alkaline Phosphatase 74 (38-126) U/L Total Protein 5.9 L (6.3-8.2) g/dL Albumin 3.3 L (3.5-5.0) g/dL <Mary Conrad - Last Filed: 02/01/19 17:19> History of Present Illness History of present illness: Patient seen and evaluated. Recommend local molasses enema ideal for fecal impaction. No acute surgical intervention needed Surgical - Exam Vital Signs Temp Pulse Resp BP Pulse Ox 98.0 F 79 18 130/68 97 01/30/19 07:45 01/30/19 07:45 01/30/19 07:45 01/30/19 07:45 01/30/19 07:45 Results - Labs 01/31/19 07:58 01/31/19 07:58 Abnormal Lab Results - Last 24 Hours (Table) 01/31/19 02/01/19 02/01/19 Range/Units 20:32 02:07 07:23 PT (9.0-12.0) sec INR (<1.2) POC Glucose (mg/dL) 360 H 301 H 310 H (75-99) mg/dL 02/01/19 02/01/19 Range/Units 08:26 12:25 PT 24.7 H (9.0-12.0) sec INR 2.5 H (<1.2) POC Glucose (mg/dL) 162 H (75-99) mg/dL Microbiology - Last 24 Hours (Table) 01/30/19 16:00 Urine Culture - Preliminary Urine,Voided Gram Neg Bacilli Gram Neg Bacilli#2
--- NOTE | 2019-01-31 15:28 | P.HPIM ---
History of Present Illness H&P Date: 01/30/19 Chief Complaint: Abdominal pain, small bowel obstruction, severe constipation, nausea, type 84-year-old female one of Dr. Pope's patient who presented to demurs department at [facility] with complain of no bowel movement with increased abdominal distention pain and discomfort with nausea for the last several days with no luck of with any laxative or stool softener to ease her symptoms. Patient was seen and evaluated abdominal x-ray had partial small bowel obst ruction, CT showed severe impaction with still suspicion for obstruction as well. No NG tube was required patient was admitted originally to general surgery and transferred to medicine afterward was giving milk of molasses enema started having some bowel movement was started on hydration and admitted to the hospital for the above problem. Review of Systems CONSTITUTIONAL: Well-developed no acute respiratory distress. EYES: No icterus sclerae, no conjunctivitis. EARS, NOSE, MOUTH, THROAT, and FACE: No sore throat, lymphadenopathy, carotid bruits or deformity. RESPIRATORY: No SOB cough or wheezes. CARDIOVASCULAR: No CP, Palpitation, PND, Orthopnea, or angina. GASTROINTESTINAL: Positive abdominal pain with nausea and vomiting positive severe constipation with no sign of GI bleed positive distention possible bowel obstruction. GENITOURINARY: Negative for Hematuria or UTI, no kidney stones. Mild incontinence. INTEGUMENT/BREAST: Positive generalized arthralgia and myalgia. HEMATOLOGIC/LYMPHATIC: Negative for bleed or purpura. MUSCULOSKELTAL: Positive generalized arthritis with mild scoliosis NEURLOGICAL: No LOC, Sz or syncope, blurred vision dizziness or abnormality.. BEHAVIORAL/PSYCH: Negative. ENDOCRINE: Negative. 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 History of Any Multi-Drug Resistant Organisms: None Reported Past Surgical History: AICD, Cardiac Ablation, EPS, Hysterectomy, Pacemaker, Tonsillectomy Additional Past Surgical History / Comment(s): AICD-pt cannot recall year it was placed but believes it was done in [place], [place], pacemaker, total hysterectomy, cataracts removed, colonoscopy-pre cancerous polyps, skin cancer removals. Past Anesthesia/Blood Transfusion Reactions: Previous Problems w/ Anesthesia, Motion Sickness Additional Past Anesthesia/Blood Transfusion Reaction / Comment(s): "slept for three days after anesthesia"- vertigo Type of Cardiac Device: Permanent Pacemaker, AICD Device Placement Date:: 10/01/2010 [facility]-pacer. Pt does not know year AICD placed. Smoking Status: Never smoker - Past Family History Father Family Medical History: CVA/TIA Sister(s) Family Medical History: Cancer Additional Family Medical History / Comment(s): ovarian, squamous in the mouth Medications and Allergies Home Medications Medication Instructions Recorded Confirmed Type Bumetanide [BUMEX] 2 mg PO DAILY 10/02/15 01/30/19 History Metolazone [Zaroxolyn] 2.5 mg PO TUTH 10/02/15 01/30/19 History Vit C/E/Zn/Coppr/Lutein/Zeaxan 1 cap PO BID 12/12/15 01/30/19 History [Preservision Areds 2 Softgel] Cholecalciferol [Vitamin D3 (25 2,000 unit PO DAILY 10/14/18 01/30/19 History Mcg = 1000 Iu)] Dulaglutide [Trulicity] 1.5 mg SQ FR 10/14/18 01/30/19 History INSULIN ASPART (NovoLOG) [NovoLOG 5 unit SQ AC-TID 10/14/18 01/30/19 History (formulary)] Insulin Glargine,Hum.rec.anlog 21 units SQ DAILY 10/14/18 01/30/19 History [Toujeo Solostar] Potassium Chloride [Klor-Con 20] 20 meq PO DAILY 10/14/18 01/30/19 History Warfarin Sodium [Coumadin] 3 mg PO TUTH 10/14/18 01/30/19 History Warfarin [Coumadin] 1.5 mg PO SUMOWEFRSA 10/14/18 01/30/19 History sitaGLIPtin PHOS/metFORMIN HCL 1 tab PO BID 10/14/18 01/30/19 History [Janumet 50-500 mg Tablet] Magnesium Oxide [Mag-Ox] 400 mg PO HS 01/30/19 01/30/19 History Allergies Allergy/AdvReac Type Severity Reaction Status Date / Time azithromycin Allergy Unknown Verified 01/30/19 08:02 erythromycin base Allergy Dyspnea Verified 01/30/19 08:02 sucralfate [From Carafate] Allergy Unknown Verified 01/30/19 08:02 Phenothiazines AdvReac Severe Hallucinati Verified 01/30/19 08:02 ons heparin AdvReac blood clots Verified 01/30/19 08:02 metoclopramide HCl AdvReac Hallucinati Verified 01/30/19 08:02 [From Reglan] ons all -mycins Allergy Dyspnea Uncoded 01/30/19 08:02 Physical Exam Vitals: Vital Signs Temp Pulse Pulse Resp BP BP Pulse Ox 01/30/19 20:49 97.0 F L 84 18 127/60 01/30/19 15:00 98.1 F 86 17 127/61 95 01/30/19 12:53 98.1 F 81 18 114/66 95 01/30/19 07:45 98.0 F 79 18 130/68 97 Intake and Output 01/30/19 01/30/19 01/30/19 06:59 14:59 22:59 Intake Total 25 Balance 25 Intake: Intake, IV Titration 25 Amount Sodium Chloride 0.9% 1, 25 000 ml @ 75 mls/hr IV . [id number] [facility] Rx#:[id number] Other: Weight 45.813 kg General Appearance: Alert, cooperative, no distress, appears stated age. Neck HEENT: Supple, no lymphadenopathy, no thyroid enlargement, no carotid bruits. Lungs: Clear to auscultation without crackles or wheezes no rhonchi, no deformity. Chest Wall: Decrease expansion with deep inspiration no tenderness and no deformity was found on exam, no costochondral pain or discomfort. Heart: Regular rate and rhythm, S1, S2 positive is 3 with ejection murmur . Back: Symmetric, no curvature, ROM normal, no CVA tenderness. Abdomen: Soft distended bowel with decreased bowel sound slight tenderness in left lower quadrant compared to the right side with slight discomfort lower abdominal region area as well. Extremities: Extremities normal, atraumatic, no cyanosis or edema. Pulses: 2+ and symmetric. Skin: Skin color, texture, tugor normal, no rashes or lesions. Neurologic: Alert oriented x3 cranial nerves II through XII intact, no motor deficit, no abnormal balance or gait. Results CBC & Chem 7: 01/31/19 07:58 01/31/19 07:58 Labs: Abnormal Lab Results - Last 24 Hours (Table) 01/30/19 01/30/19 01/30/19 Range/Units 08:50 08:50 12:06 Plt Count 149 L (150-450) k/uL Lymphocytes # 0.9 L (1.0-4.8) k/uL Carbon Dioxide 33 H (22-30) mmol/L BUN 35 H (7-17) mg/dL POC Glucose (mg/dL) 55 L (75-99) mg/dL AST 58 H (14-36) U/L ALT 64 H (9-52) U/L Total Protein 6.1 L (6.3-8.2) g/dL Urine Appearance (Clear) Urine pH (5.0-8.0) Ur Specific [place] (1.001-1.035) Urine Protein (Negative) Ur Leukocyte Esterase (Negative) Urine WBC (0-5) /hpf Amorphous Sediment (None) /hpf 01/30/19 01/30/19 01/30/19 Range/Units 16:00 20:12 20:26 Plt Count (150-450) k/uL Lymphocytes # (1.0-4.8) k/uL Carbon Dioxide (22-30) mmol/L BUN (7-17) mg/dL POC Glucose (mg/dL) 46 L 60 L (75-99) mg/dL AST (14-36) U/L ALT (9-52) U/L Total Protein (6.3-8.2) g/dL Urine Appearance Turbid H (Clear) Urine pH 8.5 H (5.0-8.0) Ur Specific [place] 1.049 H (1.001-1.035) Urine Protein Trace H (Negative) Ur Leukocyte Esterase Moderate H (Negative) Urine WBC 23 H (0-5) /hpf Amorphous Sediment Moderate H (None) /hpf 01/30/19 Range/Units 20:54 Plt Count (150-450) k/uL Lymphocytes # (1.0-4.8) k/uL Carbon Dioxide (22-30) mmol/L BUN (7-17) mg/dL POC Glucose (mg/dL) 118 H (75-99) mg/dL AST (14-36) U/L ALT (9-52) U/L Total Protein (6.3-8.2) g/dL Urine Appearance (Clear) Urine pH (5.0-8.0) Ur Specific [place] (1.001-1.035) Urine Protein (Negative) Ur Leukocyte Esterase (Negative) Urine WBC (0-5) /hpf Amorphous Sediment (None) /hpf Thrombosis Risk Factor Assmnt - DVT/VTE Prophylaxis DVT/VTE Prophylaxis: Pharmacologic Prophylaxis ordered, Mechanical Prophylaxis ordered - Choose All That Apply Any of the Below Risk Factors Present?: Yes Other Risk Factors: Yes Each Risk Factor Represents 2 Points: Malignancy Each Risk Factor Represents 3 Points: Age 75 years or older, History of DVT/PE Other congenital or acquired thrombophilia - If yes, enter type in comment: No Thrombosis Risk Factor Assessment Total Risk Factor Score: 8 Thrombosis Risk Factor Assessment Level: High Risk Assessment and Plan Plan: 1 abdominal pain: Secondary to small bowel obstruction and severe fecal impact, we work on fecal impact repeat abdominal x-ray and consult general surgery to watch over and make sure no need for intervention. 2 small bowel obstruction: Could be from impaction or could be mechanical if worsening symptom and persistent nausea and vomiting with no bowel movement patient require NG tube and possible intervention. 3 A. fib with RVR: Pulse rates under control currently patient remain on warfarin with INR is therapeutic resume warfarin continue Accu-Chek with sliding scales coverage. 4 type 2 diabetes: Has been on Toujeo, NovoLog, Trulicity and Janumet, continue Accu-Chek with sliding coverage. 5 chronic systolic dysfunction congestive heart failure: Has been on Bumex, Zaroxolyn 18 and fluid restriction. 6 history of CVA: Still have no major residual walking with walker still have abnormal balance and gait. 7 hyperlipidemia: Off statin at this point. 8 severe arrhythmia: Post pacemaker been doing well. 9 history of DVT: Patient remain on anticoagulation. 10 chronic lower back pain: With compression vertebrae and severe osteoporosis, patient remain on medical management only no narcotic been using this point. 11 DVT prophylaxis: Remain on warfarin. 12 GI prophylaxis: Patient be on Pepcid 20 mg daily. Admit patient to inpatient status for 1-2 nights.
--- NOTE | 2019-01-31 15:30 | P.PN ---
Subjective Progress Note Date: 01/31/19 Principal diagnosis: Abdominal pain, small bowel obstruction, severe constipation, nausea, type 2 diabetes, A. fib with RVR, history of DVT, history of stroke, arrhythmia post pacemaker and ICD. 84-year-old female one of Dr. Pope's patient who presented to demurs department at [facility] with complain of no bowel movement with increased abdominal distention pain and discomfort with nausea for the last several days with no luck of with any laxative or stool softener to ease her symptoms. Patient was seen and evaluated abdominal x-ray had partial small bowel obstru ction, CT showed severe impaction with still suspicion for obstruction as well. No NG tube was required patient was admitted originally to general surgery and transferred to medicine afterward was giving milk of molasses enema started having some bowel movement was started on hydration and admitted to the hospital for the above problem. 01/31: Patient is doing much better she was seen by Dr. Conrad today no need for any intervention repeat another abdominal x-ray tomorrow patient had bowel m ovement after her enema yesterday her abdominal distention is down little bit but not completely resolved. Objective - Vital Signs Vital signs: Vital Signs Temp 96.5 F L 01/31/19 11:27 Pulse 69 01/31/19 11:27 Resp 16 01/31/19 11:27 BP 125/58 01/31/19 11:27 Pulse Ox 94 L 01/31/19 11:27 Intake & Output 01/30/19 01/31/19 01/31/19 18:59 06:59 18:59 Intake Total 25 0 Balance 25 0 Weight 45.813 kg 45.813 kg Intake: Intake, IV Titration 25 Amount Sodium Chloride 0.9% 1, 25 000 ml @ 75 mls/hr IV . [id number] [facility] Rx#:[id number] Oral 0 Other: Voiding Method Bedside Commode Bedside Commode # Voids 3 3 # Bowel Movements 1 - Exam Review of Systems CONSTITUTIONAL: Well-developed no acute respiratory distress. EYES: No icterus sclerae, no conjunctivitis. EARS, NOSE, MOUTH, THROAT, and FACE: No sore throat, lymphadenopathy, carotid bruits or deformity. RESPIRATORY: No SOB cough or wheezes. CARDIOVASCULAR: No CP, Palpitation, PND, Orthopnea, or angina. GASTROINTESTINAL: Positive abdominal pain with nausea and vomiting positive severe constipation with no sign of GI bleed positive distention possible bowel obstruction. GENITOURINARY: Negative for Hematuria or UTI, no kidney stones. Mild incontinence. INTEGUMENT/BREAST: Positive generalized arthralgia and myalgia. HEMATOLOGIC/LYMPHATIC: Negative for bleed or purpura. MUSCULOSKELTAL: Positive generalized arthritis with mild scoliosis NEURLOGICAL: No LOC, Sz or syncope, blurred vision dizziness or abnormality.. BEHAVIORAL/PSYCH: Negative. ENDOCRINE: Negative. Physical Exam General Appearance: Alert, cooperative, no distress, appears stated age. Neck HEENT: Supple, no lymphadenopathy, no thyroid enlargement, no carotid bruits. Lungs: Clear to auscultation without crackles or wheezes no rhonchi, no deformity. Chest Wall: Decrease expansion with deep inspiration no tenderness and no deformity was found on exam, no costochondral pain or discomfort. Heart: Regular rate and rhythm, S1, S2 positive is 3 with ejection murmur . Back: Symmetric, no curvature, ROM normal, no CVA tenderness. Abdomen: Soft distended bowel with decreased bowel sound slight tenderness in left lower quadrant compared to the right side with slight discomfort lower abdominal region area as well. Extremities: Extremities normal, atraumatic, no cyanosis or edema. Pulses: 2+ and symmetric. Skin: Skin color, texture, tugor normal, no rashes or lesions. Neurologic: Alert oriented x3 cranial nerves II through XII intact, no motor deficit, no abnormal balance or gait. - Labs CBC & Chem 7: 01/31/19 07:58 01/31/19 07:58 Labs: Abnormal Lab Results - Last 24 Hours (Table) 01/30/19 01/30/19 01/30/19 Range/Units 16:00 20:12 20:26 Lymphocytes # (1.0-4.8) k/uL PT (9.0-12.0) sec INR (<1.2) BUN (7-17) mg/dL Glucose (74-99) mg/dL POC Glucose (mg/dL) 46 L 60 L (75-99) mg/dL AST (14-36) U/L ALT (9-52) U/L Total Protein (6.3-8.2) g/dL Albumin (3.5-5.0) g/dL Urine Appearance Turbid H (Clear) Urine pH 8.5 H (5.0-8.0) Ur Specific [place] 1.049 H (1.001-1.035) Urine Protein Trace H (Negative) Ur Leukocyte Esterase Moderate H (Negative) Urine WBC 23 H (0-5) /hpf Amorphous Sediment Moderate H (None) /hpf 01/30/19 01/31/19 01/31/19 Range/Units 20:54 07:04 07:25 Lymphocytes # (1.0-4.8) k/uL PT (9.0-12.0) sec INR (<1.2) BUN (7-17) mg/dL Glucose (74-99) mg/dL POC Glucose (mg/dL) 118 H 58 L 70 L (75-99) mg/dL AST (14-36) U/L ALT (9-52) U/L Total Protein (6.3-8.2) g/dL Albumin (3.5-5.0) g/dL Urine Appearance (Clear) Urine pH (5.0-8.0) Ur Specific [place] (1.001-1.035) Urine Protein (Negative) Ur Leukocyte Esterase (Negative) Urine WBC (0-5) /hpf Amorphous Sediment (None) /hpf 01/31/19 01/31/19 01/31/19 Range/Units 07:58 07:58 07:58 Lymphocytes # 0.8 L (1.0-4.8) k/uL PT 26.0 H (9.0-12.0) sec INR 2.7 H (<1.2) BUN 18 H (7-17) mg/dL Glucose 134 H (74-99) mg/dL POC Glucose (mg/dL) (75-99) mg/dL AST 43 H (14-36) U/L ALT 54 H (9-52) U/L Total Protein 5.9 L (6.3-8.2) g/dL Albumin 3.3 L (3.5-5.0) g/dL Urine Appearance (Clear) Urine pH (5.0-8.0) Ur Specific [place] (1.001-1.035) Urine Protein (Negative) Ur Leukocyte Esterase (Negative) Urine WBC (0-5) /hpf Amorphous Sediment (None) /hpf 01/31/19 Range/Units 11:25 Lymphocytes # (1.0-4.8) k/uL PT (9.0-12.0) sec INR (<1.2) BUN (7-17) mg/dL Glucose (74-99) mg/dL POC Glucose (mg/dL) 140 H (75-99) mg/dL AST (14-36) U/L ALT (9-52) U/L Total Protein (6.3-8.2) g/dL Albumin (3.5-5.0) g/dL Urine Appearance (Clear) Urine pH (5.0-8.0) Ur Specific [place] (1.001-1.035) Urine Protein (Negative) Ur Leukocyte Esterase (Negative) Urine WBC (0-5) /hpf Amorphous Sediment (None) /hpf Microbiology - Last 24 Hours (Table) 01/30/19 16:00 Urine Culture - Preliminary Urine,Voided Assessment and Plan Plan: 1 abdominal pain: Secondary to small bowel obstruction and severe fecal impact, we work on fecal impact repeat abdominal x-ray and consult general surgery to [facility] over and make sure no need for intervention. 2 small bowel obstruction: Could be from impaction or could be mechanical if worsening symptom and persistent nausea and vomiting with no bowel movement patient require NG tube and possible intervention. 3 A. fib with RVR: Pulse rates under control currently patient remain on warfarin with INR is therapeutic resume warfarin continue Accu-Chek with sliding scales coverage. 4 type 2 diabetes: Has been on Toujeo, NovoLog, Trulicity and Janumet, continue Accu-Chek with sliding coverage. 5 chronic systolic dysfunction congestive heart failure: Has been on Bumex, Zaroxolyn 18 and fluid restriction. 6 history of CVA: Still have no major residual walking with walker still have abnormal balance and gait. 7 hyperlipidemia: Off statin at this point. 8 severe arrhythmia: Post pacemaker been doing well. 9 history of DVT: Patient remain on anticoagulation. 10 chronic lower back pain: With compression vertebrae and severe osteoporosis, patient remain on medical management only no narcotic been using this point. Continue medical management for now increase hydration, increase nutrition patient is doing well by tomorrow my be discharged home tomorrow.
[2019-01-31 17:15] LABS: Glucose,Whole Blood 97 mg/dL (75-99)
[2019-01-31] MEDS ORDERED: WARFARIN 1.5 MG TAB PO SCH (18:00)
[2019-01-31 20:55] LABS: Glucose,Whole Blood 360 mg/dL (75-99)
[2019-01-31] MEDS ORDERED: MAGNESIUM OXIDE 400 MG TAB PO SCH (21:00)
[2019-02-01 02:28] LABS: Glucose,Whole Blood 301 mg/dL (75-99)
[2019-02-01] MEDS: SODIUM CHLORIDE 0.9% 1,000 ML IV SCH (07:05)
[2019-02-01 07:25] LABS: Glucose,Whole Blood 310 mg/dL (75-99)
[2019-02-01] MEDS: CHOLECALCIFEROL 1,000 UNIT TAB PO SCH (08:12)
[2019-02-01] MEDS: FAMOTIDINE 20 MG TAB PO SCH (08:12)
[2019-02-01] MEDS: POTASSIUM CHLORIDE ER 20 MEQ TAB.ER PO SCH (08:12)
[2019-02-01] MEDS: LINAGLIPTIN 5 MG TABLET PO SCH (08:12)
[2019-02-01] MEDS: metFORMIN 500 MG TAB PO SCH (08:12)
[2019-02-01] MEDS: SENNOSIDES-DOCUSATE SODIUM 1 EACH TAB PO SCH (08:12)
[2019-02-01] MEDS: INSULIN DETEMIR (LEVEMIR) 100 UNIT/ML SYR SQ SCH (08:13)
[2019-02-01] MEDS: INSULIN ASPART (NovoLOG) 100 UNIT/ML VIAL SQ SCH ×2 (08:13→12:29)
[2019-02-01] MEDS: BUMETANIDE 1 MG TAB PO SCH (09:00)
[2019-02-01 09:06] LABS: INR 2.5 (<1.2); Prothrombin Time 24.7 sec (9.0-12.0)
[2019-02-01 12:27] LABS: Glucose,Whole Blood 162 mg/dL (75-99)
[2019-02-01] MEDS ORDERED: INSULIN ASPART (NovoLOG) 100 UNIT/ML VIAL SQ SCH (12:30)
--- NOTE | 2019-02-01 13:14 | P.PN ---
Subjective Progress Note Date: 02/01/19 CHIEF COMPLAINT: Constipation HISTORY OF PRESENT ILLNESS: Patient examined at the bedside this morning. She denies abdominal pain. She continues to have bowel movements. PHYSICAL EXAM: VITAL SIGNS: Reviewed GENERAL: Well-developed in no acute distress. HEENT: No sclera icterus. Extraocular movements grossly intact. Moist buccal mucosa. Head is atraumatic, normocephalic. Hears conversational speech. No nasal drainage. NECK: Supple without lymphadenopathy. CHEST: Non-labored respirations and equal bilateral excursions. CARDIOVASCULAR: Regular rate with regular rhythm. Palpable 2+ radial pulses. ABDOMEN: Soft. Distended, but patient reports this is her baseline. Nontender. Positive bowel sounds. MUSCULOSKELETAL: No clubbing, cyanosis or edema. NEUROLOGIC: No focal or lateralizing signs. Cranial nerves II through XII g rossly intact. PSYCH: Appropriate affect. Alert and oriented to person, place and time. SKIN: Well perfused. Good skin turgor. ASSESSMENT: 1. Fecal impaction 2. Chronic constipation PLAN: Advance diet Continue Senokot-S. This should be continued at discharge Increase fluid intake to prevent constipation Patient educated on milk of molasses enemas as needed on an outpatient basis when she begins feeling constipated No surgical intervention recommended Nurse practitioner note has been reviewed by physician. Signing provider agrees with the documented findings, assessment, and plan of care. Objective - Vital Signs Vital signs: Vital Signs Temp 98.4 F 02/01/19 07:41 Pulse 73 02/01/19 07:41 Resp 16 02/01/19 07:41 BP 146/68 02/01/19 07:41 Pulse Ox 95 02/01/19 07:41 Intake & Output 01/31/19 02/01/19 02/01/19 18:59 06:59 18:59 Intake Total 650 780 Balance 650 780 Weight 45.813 kg Intake: IV 600 Sodium Chloride 0.9% 1, 600 000 ml @ 75 mls/hr IV . [id number] [facility] Rx#:[id number] Oral 650 180 Other: Voiding Method Bedside Commode Bedside Commode # Voids 3 4 # Bowel Movements 4 - Labs CBC & Chem 7: 01/31/19 07:58 01/31/19 07:58 Labs: Abnormal Lab Results - Last 24 Hours (Table) 01/31/19 02/01/1919 Range/Units 20:32 02:07 07:23 PT (9.0-12.0) sec INR (<1.2) POC Glucose (mg/dL) 360 H 301 H 310 H (75-99) mg/dL 02/01/19 Range/Units 08:26 PT 24.7 H (9.0-12.0) sec INR 2.5 H (<1.2) POC Glucose (mg/dL) (75-99) mg/dL Microbiology - Last 24 Hours (Table) 01/30/19 16:00 Urine Culture - Preliminary Urine,Voided Gram Neg Bacilli Gram Neg Bacilli#2
[2019-02-01 13:54] VITALS: BP 101/59; PULSE 91; RESP 20; TEMP 98.2
--- NOTE | 2019-02-01 15:47 | P.DS ---
Providers Date of admission: 01/30/19 11:21 Expected date of discharge: 02/01/19 Attending physician: Noemi Pope Consults: 01/30/19 14:25 Consult Physician Routine Consulting Provider: Mary Conrad Consult Reason/Comments: sbo Do you want consulting provider notified?: Already Contacted Primary care physician: Noemi Pope Hospital Course: 84-year-old female one of Dr. Pope's patient who presented to demurs department at [facility] with complain of no bowel movement with increased abdominal distention pain and discomfort with nausea for the last several days with no luck of with any laxative or stool softener to ease her symptoms. Patient was seen and evaluated abdominal x-ray had partial small bowel obstruction, CT showed severe impaction with still suspicion for obstruction as well. No NG tube was required patient was admitted originally to general surgery and transferred to medicine afterward was giving milk of molasses enema started having some bowel movement was started on hydration and admitted to the hospital for the above problem. 01/31: Patient is doing much better she was seen by Dr. Conrad today no need for any intervention repeat another abdominal x-ray tomorrow patient had bowel movement after her enema yesterday her abdominal distention is down little bit but not completely resolved. 02/01: Repeat INR 2.5. Patient is status post enema. She is denying any abdominal pains states she has been having continued bowel movements. She was started on clear liquid diet and has been advanced to regular diet for lunch today. Patient is tolerating this well. No nausea or vomiting. We'll plan for discharge home later today. Discharge diagnoses: 1 abdominal pain: Secondary to small bowel obstruction and severe fecal impact 2 small bowel obstruction 3 paroxysmal atrial fibrillation 4 type 2 diabetes 5 chronic systolic heart failure 6 history of CVA 7 hyperlipidemia: Off statin 8 severe arrhythmia 9 history of DVT 10 chronic lower back pain: With compression vertebrae and severe osteoporosis, 11 UTI, present on admission Discharge plan: Home at [facility] Impression and plan of care have been directed as dictated by the signing physician. Sameera Ward nurse practitioner acting as scribe for signing physician. Patient Condition at Discharge: Good Plan - Discharge Summary Discharge Rx Participant: No New Discharge Prescriptions: New Sennosides-Docusate Sodium [Senokot-S] 2 each PO BID tab Polyethylene Glycol 3350 [Miralax] 17 gm PO DAILY #30 packet Cefuroxime [Ceftin] 250 mg PO BID #10 tablet Continue Metolazone [Zaroxolyn] 2.5 mg PO TUTH Bumetanide [BUMEX] 2 mg PO DAILY Vit C/E/Zn/Coppr/Lutein/Zeaxan [Preservision Areds 2 Softgel] 1 cap PO BID Insulin Glargine,Hum.rec.anlog [Toujeo Solostar] 21 units SQ DAILY Dulaglutide [Trulicity] 1.5 mg SQ FR Potassium Chloride [Klor-Con 20] 20 meq PO DAILY sitaGLIPtin PHOS/metFORMIN HCL [Janumet 50-500 mg Tablet] 1 tab PO BID Warfarin [Coumadin] 1.5 mg PO SUMOWEFRSA Warfarin Sodium [Coumadin] 3 mg PO TUTH Cholecalciferol [Vitamin D3 (25 Mcg = 1000 Iu)] 2,000 unit PO DAILY INSULIN ASPART (NovoLOG) [NovoLOG (formulary)] 5 unit SQ AC-TID Magnesium Oxide [Mag-Ox] 400 mg PO HS Discharge Medication List Bumetanide [BUMEX] 2 mg PO DAILY 10/02/15 [History] Metolazone [Zaroxolyn] 2.5 mg PO TUTH 10/02/15 [History] Vit C/E/Zn/Coppr/Lutein/Zeaxan [Preservision Areds 2 Softgel] 1 cap PO BID 12/12/15 [History] Cholecalciferol [Vitamin D3 (25 Mcg = 1000 Iu)] 2,000 unit PO DAILY 10/14/18 [History] Dulaglutide [Trulicity] 1.5 mg SQ FR 10/14/18 [History] INSULIN ASPART (NovoLOG) [NovoLOG (formulary)] 5 unit SQ AC-TID 10/14/18 [History] Insulin Glargine,Hum.rec.anlog [Toujeo Solostar] 21 units SQ DAILY 10/14/18 [History] Potassium Chloride [Klor-Con 20] 20 meq PO DAILY 10/14/18 [History] Warfarin Sodium [Coumadin] 3 mg PO TUTH 10/14/18 [History] Warfarin [Coumadin] 1.5 mg PO SUMOWEFRSA 10/14/18 [History] sitaGLIPtin PHOS/metFORMIN HCL [Janumet 50-500 mg Tablet] 1 tab PO BID 10/14/18 [History] Magnesium Oxide [Mag-Ox] 400 mg PO HS 01/30/19 [History] Cefuroxime [Ceftin] 250 mg PO BID #10 tablet 02/01/19 [Rx] Polyethylene Glycol 3350 [Miralax] 17 gm PO DAILY #30 packet 02/01/19 [Rx] Sennosides-Docusate Sodium [Senokot-S] 2 each PO BID tab 02/01/19 [Rx] Follow up Appointment(s)/Referral(s): Noemi Pope MD [Primary Care Provider] - 02/08/19 1:30 pm (Office will call you with appt) Patient Instructions/Handouts: Constipation (DC), Bowel Obstruction (DC) Discharge Disposition: HOME SELF-CARE
[2019-02-01] MEDS ORDERED: WARFARIN 3 MG TAB PO SCH (18:00)
[2019-02-02] MEDS ORDERED: Dulaglutide [Trulicity] 1.5 MG SQ SCH (09:00)
== END 2019-02-01 15:12 | disposition home or self-care (01) | DRG 389 ==
LOC: EC 07:43 → 4MS4W 11:21 → 3NMEDONC 12:36 → 4MS4W 01-31 18:25
PROVIDERS: ADMIT Internal Medicine; ATTEND Internal Medicine
DX: K56.600 Partial intestinal obstruction, unspecified as to cause (principal); I50.22 Chronic systolic (congestive) heart failure; M80.08XA Age-related osteoporosis with current pathological fracture, vertebra(e), initial encounter for fracture; N39.0 Urinary tract infection, site not specified; K56.41 Fecal impaction; E11.9 Type 2 diabetes mellitus without complications; E78.5 Hyperlipidemia, unspecified; G89.29 Other chronic pain; I48.0 Paroxysmal atrial fibrillation; Z79.01 Long term (current) use of anticoagulants; Z79.4 Long term (current) use of insulin; Z79.899 Other long term (current) drug therapy; Z85.43 Personal history of malignant neoplasm of ovary; Z85.828 Personal history of other malignant neoplasm of skin; Z86.718 Personal history of other venous thrombosis and embolism; Z86.73 Personal history of transient ischemic attack (TIA), and cerebral infarction without residual deficits; Z87.19 Personal history of other diseases of the digestive system; Z87.442 Personal history of urinary calculi; Z90.710 Acquired absence of both cervix and uterus; Z95.810 Presence of automatic (implantable) cardiac defibrillator; Z98.42 Cataract extraction status, left eye; Z98.41 Cataract extraction status, right eye; Z88.1 Allergy status to other antibiotic agents; Z88.8 Allergy status to other drugs, medicaments and biological substances
CPT/HCPCS: 36415; 74018; 74177; 80053; 81001; 85025; 85610; 87077; 87086; 87186; 99285

== ENCOUNTER 2019-06-01 17:25 | Inpatient (IN) | payer MEDICARE, BC ==
[2019-06-01 19:37] LABS: Basophils % (A) 0 %; Eosinophils # (A) 0.1 k/uL (0-0.7); Eosinophils % (A) 0 %; HCT 33.7 % (34.0-46.0); HGB 10.9 gm/dL (11.4-16.0); Lymphocytes # (A) 0.8 k/uL (1.0-4.8); Lymphocytes % (A) 6 %; MCH 28.7 pg (25.0-35.0); MCHC 32.4 g/dL (31.0-37.0); MCV 88.8 fL (80.0-100.0); Mean Platelet Volume 8.3; Monocytes # (A) 0.7 k/uL (0-1.0); Monocytes % (A) 5 %; Neutrophils # (A) 11.9 k/uL (1.3-7.7); Neutrophils % (A) 88 %; Platelet Count 129 k/uL (150-450); RDW 14.3 % (11.5-15.5); WBC 13.5 k/uL (3.8-10.6)
[2019-06-01 19:44] LABS: INR 2.4 (<1.2); Partial Thromboplastin Time 32.5 sec (22.0-30.0); Prothrombin Time 23.3 sec (9.0-12.0)
[2019-06-01 19:53] LABS: Albumin 3.4 g/dL (3.5-5.0); Calcium 9.2 mg/dL (8.4-10.2); Potassium 3.6 mmol/L (3.5-5.1); Total Bilirubin 0.4 mg/dL (0.2-1.3); Total Protein 6.1 g/dL (6.3-8.2)
--- NOTE | 2019-06-01 19:55 | CT ---
EXAMINATION TYPE: CT brain kelly wo con DATE OF EXAM: 06/01/2019 COMPARISON: 11/12/2014 HISTORY: fall on blood thinners Headache. Neck pain. CT DLP: 1206 mGycm Automated exposure control for dose reduction was used. There is some cerebral cortical atrophy. There is no mass effect nor midline shift. There is no sign of intracranial hemorrhage. There is hyperostosis frontalis. There is mucosal thickening left maxilla ry sinus. Calvarium is intact. Cervical vertebra have normal alignment. Posterior elements are intact. Skull base is intact. There i s no evidence of a fracture. I see no bony destructive process. There is mild facet arthropathy in th e mid cervical spine. Impression Mild atrophy. No acute intracranial abnormality. No change. Mild left maxillary sinusitis appears new compared to old exam. Mild spondylotic changes in the cervical spine. No fracture.
[2019-06-01 20:07] LABS: Appearance,Urine Clear (Clear); Bilirubin,Urine Negative (Negative); Blood,Urine Negative (Negative); Color,Urine Light Yellow; Glucose,Urine (UA) Negative (Negative); Ketones,Urine Negative (Negative); Leukocyte Esterase,Urine Negative (Negative); Nitrite,Urine Negative (Negative); Protein,Urine Negative (Negative); Urobilinogen,Urine <2.0 mg/dL (<2.0)
--- NOTE | 2019-06-01 21:17 | ED ---
Fall HPI - General Chief Complaint: Fall Stated Complaint: Fall Time Seen by Provider: 06/01/19 18:05 Source: patient, EMS Mode of arrival: EMS - History of Present Illness Initial Comments: Patient is an 84-year-old female presenting to emergency Department chief complaint of a fall. Patient brought to the ED via EMS from [facility]. Daughter is also present in the room. She states the patient currently lives alone after her had a stroke. He was the one who took care of her before. Daughter states the patient receives for daily visits by the facility staff and found her this morning laying on the ground. Patient does not remember the events that took place prior to this. Patient states possible syncopal episode causing to be on the floor. EMS was contacted and patient brought to the ED. Daughter states there is a concern for questionable dementia. Patient denies any other complaints aside from "usual aches and pains". Patient doesn't remember the last time she had a bowel movement or had to urinate. The daughter is concerned for possible constipation. Daughter states she saw the patient 2 days ago and states that her abdomen has si gnificantly increased in size. - Related Data Home Medications Medication Instructions Recorded Confirmed Bumetanide [BUMEX] 2 mg PO DAILY 10/02/15 01/30/19 Metolazone [Zaroxolyn] 2.5 mg PO TUTH 10/02/15 01/30/19 Vit C/E/Zn/Coppr/Lutein/Zeaxan 1 cap PO BID 12/12/15 01/30/19 [Preservision Areds 2 Softgel] Cholecalciferol [Vitamin D3 (25 2,000 unit PO DAILY 10/14/18 01/30/19 Mcg = 1000 Iu)] Dulaglutide [Trulicity] 1.5 mg SQ FR 10/14/18 01/30/19 INSULIN ASPART (NovoLOG) [NovoLOG 5 unit SQ AC-TID 10/14/18 01/30/19 (formulary)] Insulin Glargine,Hum.rec.anlog 21 units SQ DAILY 10/14/18 01/30/19 [Jim Clark] Potassium Chloride [Klor-Con 20] 20 meq PO DAILY 10/14/18 01/30/19 Warfarin Sodium [Coumadin] 3 mg PO TUTH 10/14/18 01/30/19 Warfarin [Coumadin] 1.5 mg PO SUMOWEFRSA 10/14/18 01/30/19 sitaGLIPtin PHOS/metFORMIN HCL 1 tab PO BID 10/14/18 01/30/19 [Janumet 50-500 mg Tablet] Magnesium Oxide [Mag-Ox] 400 mg PO HS 01/30/19 01/30/19 Previous Rx's Medication Instructions Recorded Cefuroxime [Ceftin] 250 mg PO BID #10 tablet 02/01/19 Polyethylene Glycol 3350 [Miralax] 17 gm PO DAILY #30 packet 02/01/19 Sennosides-Docusate Sodium 2 each PO BID tab 02/01/19 [Senokot-S] Allergies Allergy/AdvReac Type Severity Reaction Status Date / Time azithromycin Allergy Unknown Verified 06/01/19 17:38 erythromycin base Allergy Dyspnea Verified 06/01/19 17:38 sucralfate [From Carafate] Allergy Unknown Verified 06/01/19 17:38 Phenothiazines AdvReac Severe Hallucinati Verified 06/01/19 17:38 ons heparin AdvReac blood clots Verified 06/01/19 17:38 metoclopramide HCl AdvReac Hallucinati Verified 06/01/19 17:38 [From Reglan] ons all -mycins Allergy Dyspnea Uncoded 06/01/19 17:38 Review of Systems ROS Statement: Those systems with pertinent positive or pertinent negative responses have been documented in the HPI. ROS Other: All systems not noted in ROS Statement are negative. 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 History of Any Multi-Drug Resistant Organisms: None Reported Past Surgical History: AICD, Cardiac Ablation, EPS, Hysterectomy, Pacemaker, Tonsillectomy Additional Past Surgical History / Comment(s): AICD-pt cannot recall year it was placed but believes it was done in [place], [place], pacemaker, total hysterectomy, cataracts removed, colonoscopy-pre cancerous polyps, skin cancer removals. Past Anesthesia/Blood Transfusion Reactions: Previous Problems w/ Anesthesia, Motion Sickness Additional Past Anesthesia/Blood Transfusion Reaction / Comment(s): "slept for three days after anesthesia"- vertigo Type of Cardiac Device: Permanent Pacemaker, AICD Device Placement Date:: 10/01/2010 [facility]-pacer. Pt does not know year AICD placed. Past Psychological History: No Psychological Hx Reported Smoking Status: Never smoker - Past Family History Father Family Medical History: CVA/TIA Sister(s) Family Medical History: Cancer Additional Family Medical History / Comment(s): ovarian, squamous in the mouth General Exam Limitations: no limitations General appearance: alert, in no apparent distress Head exam: Present: atraumatic, normocephalic, normal inspection Eye exam: Present: normal appearance, PERRL, EOMI Pupils: Present: normal accommodation ENT exam: Present: normal exam, normal oropharynx, mucous membranes moist, TM's normal bilaterally, normal external ear exam Neck exam: Present: normal inspection, full ROM. Absent: lymphadenopathy Respiratory exam: Present: normal lung sounds bilaterally. Absent: respiratory distress, wheezes Cardiovascular Exam: Present: regular rate, normal rhythm, systolic murmur GI/Abdominal exam: Present: soft, distended, tenderness (Diffuse abdominal t enderness). Absent: guarding, rebound, rigid Rectal exam: Present: hemorrhoids, other (Rectal prolapse, mild.) Extremities exam: Present: normal inspection, full ROM, pedal edema (Bilateral lower extremity edema at baseline.) Back exam: Present: normal inspection, full ROM. Absent: tenderness Neurological exam: Present: alert, oriented X3 Psychiatric exam: Present: normal affect, normal mood Skin exam: Present: warm, dry, intact, normal color Course Vital Signs 06/01/19 06/01/19 17:33 22:32 Temperature 98.1 F Pulse Rate 92 87 Respiratory 18 20 Rate Blood Pressure 118/72 113/54 O2 Sat by Pulse 95 94 L Oximetry Medical Decision Making - Medical Decision Making Patient is an 84-year-old female with history of diabetes presenting to emergency Department with chief complaint of fall. Patient brought to the ED via EMS. C-collar in place on initial evaluation. CT brain and C-spine negative for acute fractures, dislocations, intracranial hemorrhage or midline shift. Chest x-ray shows mild bilateral pleural effusion that is improved since last time. Patient does appear to have abdominal distention on physical ex amination with diffuse abdominal tenderness. Patient is known to have history of constipation. CT abdomen and pelvis shows moderate to severe constipation with impaction. Patient appeared to be retaining urine which she was not aware of. Toledo catheter was able to remove over 700 mL of urine. UA is unremarkable. CBC does show mild leukocytosis and anemia. Patient does take Coumadin. INR 2.4. Patient has been complaining of generalized weakness with possible syncopal episodes causing her to be on the floor. Manual disimpaction performed with quite a bit of stool removed. Patient also given an enema afterwards and states the bloating feeling has since resolved. Decrease in abdominal distention and discomfort. A rectal examination patient does appear to have a mucosal rectal prolapse. No hematochezia or melena noted. Considering the patient lives alone, and has developed possible syncopal episodes along with a systolic murmur most likely relating to aortic stenosis. Patient will be admitted for observation. Case discussed with . Admitting physician is Dr nova. Cardiology consulted. - Lab Data Result diagrams: 06/01/19 19:26 06/01/19 19:26 Lab Results 06/01/19 06/01/19 06/01/19 Range/Units 19:26 19:26 19:26 WBC 13.5 H (3.8-10.6) k/uL RBC 3.80 (3.80-5.40) m/uL Hgb 10.9 L (11.4-16.0) gm/dL Hct 33.7 L (34.0-46.0) % MCV 88.8 (80.0-100.0) fL MCH 28.7 (25.0-35.0) pg MCHC 32.4 (31.0-37.0) g/dL RDW 14.3 (11.5-15.5) % Plt Count 129 L (150-450) k/uL Neutrophils % 88 % Lymphocytes % 6 % Monocytes % 5 % Eosinophils % 0 % Basophils % 0 % Neutrophils # 11.9 H (1.3-7.7) k/uL Lymphocytes # 0.8 L (1.0-4.8) k/uL Monocytes # 0.7 (0-1.0) k/uL Eosinophils # 0.1 (0-0.7) k/uL Basophils # 0.0 (0-0.2) k/uL PT 23.3 H (9.0-12.0) sec INR 2.4 H (<1.2) APTT 32.5 H (22.0-30.0) sec Sodium 134 L (137-145) mmol/L Potassium 3.6 (3.5-5.1) mmol/L Chloride 96 L (98-107) mmol/L Carbon Dioxide 33 H (22-30) mmol/L Anion Gap 5 mmol/L BUN 35 H (7-17) mg/dL Creatinine 0.74 (0.52-1.04) mg/dL Est GFR (CKD-EPI)AfAm 86 (>60 ml/min/1.73 sqM) Est GFR (CKD-EPI)NonAf 74 (>60 ml/min/1.73 sqM) Glucose 90 (74-99) mg/dL POC Glucose (mg/dL) (75-99) mg/dL POC Glu Steam Box Operator ID Calcium 9.2 (8.4-10.2) mg/dL Total Bilirubin 0.4 (0.2-1.3) mg/dL AST 41 H (14-36) U/L ALT 34 (4-34) U/L Alkaline Phosphatase 76 (38-126) U/L Total Protein 6.1 L (6.3-8.2) g/dL Albumin 3.4 L (3.5-5.0) g/dL Urine Color Urine Appearance (Clear) Urine pH (5.0-8.0) Ur Specific Troy (1.001-1.035) Urine Protein (Negative) Urine Glucose (UA) (Negative) Urine Ketones (Negative) Urine Blood (Negative) Urine Nitrite (Negative) Urine Bilirubin (Negative) Urine Urobilinogen (<2.0) mg/dL Ur Leukocyte Esterase (Negative) 06/01/19 06/01/19 06/01/19 Range/Units 19:55 21:35 21:53 WBC (3.8-10.6) k/uL RBC (3.80-5.40) m/uL Hgb (11.4-16.0) gm/dL Hct (34.0-46.0) % MCV (80.0-100.0) fL MCH (25.0-35.0) pg MCHC (31.0-37.0) g/dL RDW (11.5-15.5) % Plt Count (150-450) k/uL Neutrophils % % Lymphocytes % % Monocytes % % Eosinophils % % Basophils % % Neutrophils # (1.3-7.7) k/uL Lymphocytes # (1.0-4.8) k/uL Monocytes # (0-1.0) k/uL Eosinophils # (0-0.7) k/uL Basophils # (0-0.2) k/uL PT (9.0-12.0) sec INR (<1.2) APTT (22.0-30.0) sec Sodium (137-145) mmol/L Potassium (3.5-5.1) mmol/L Chloride (98-107) mmol/L Carbon Dioxide (22-30) mmol/L Anion Gap mmol/L BUN (7-17) mg/dL Creatinine (0.52-1.04) mg/dL Est GFR (CKD-EPI)AfAm (>60 ml/min/1.73 sqM) Est GFR (CKD-EPI)NonAf (>60 ml/min/1.73 sqM) Glucose (74-99) mg/dL POC Glucose (mg/dL) 56 L 99 (75-99) mg/dL POC Glu Steam Box Operator FAUSTO Lewis, Audelia Lewis, Audelia Calcium (8.4-10.2) mg/dL Total Bilirubin (0.2-1.3) mg/dL AST (14-36) U/L ALT (4-34) U/L Alkaline Phosphatase (38-126) U/L Total Protein (6.3-8.2) g/dL Albumin (3.5-5.0) g/dL Urine Color Light Yellow Urine Appearance Clear (Clear) Urine pH 7.0 (5.0-8.0) Ur Specific Troy 1.010 (1.001-1.035) Urine Protein Negative (Negative) Urine Glucose (UA) Negative (Negative) Urine Ketones Negative (Negative) Urine Blood Negative (Negative) Urine Nitrite Negative (Negative) Urine Bilirubin Negative (Negative) Urine Urobilinogen <2.0 (<2.0) mg/dL Ur Leukocyte Esterase Negative (Negative) Disposition Clinical Impression: Fall, Constipation, Syncope, Fecal impaction in rectum Disposition: ADMITTED IP TO THIS [facility] Condition: Good Instructions (If sedation given, give patient instructions): Fall Prevention (ED) Additional Instructions: Patient will be admitted Is patient prescribed a controlled substance at d/c from ED?: No Referrals: Noemi Pope MD [Primary Care Provider] - 1-2 days Time of Disposition: 23:18
--- NOTE | 2019-06-01 21:18 | CT ---
EXAMINATION TYPE: CT abdomen pelvis w con DATE OF EXAM: 06/01/2019 COMPARISON: 01/30/2019 HISTORY: abd tenderness CT DLP: 727.5 mGycm Automated exposure control for dose reduction was used. CONTRAST: Performed with IV Contrast, patient injected with 100 mL of Isovue 300. Multiple axial sections were obtained from the diaphragm to the floor the pelvis with IV contrast There is bilateral pleural effusions and more on the right side. Heart is enlarged. There is no peric ardial effusion. There is mild infiltrate and atelectasis at the lung bases. 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 There is no dissection. Liver and spleen appear intact. Stomach is intact. Bile ducts are not dilated. There is no evidence o f pancreatic mass. Gallbladder has normal size. There is calcified gallstone. There is 2 cm cyst in t he left lobe of the liver. There is no adrenal mass. Kidneys show satisfactory contrast opacification. There is no hydronephrosi s. There is 1 cm cortical cyst anterior right kidney. Ureters are not dilated. There is 5 mm calculus in the left kidney. There is no sign of retroperitoneal adenopathy. There is retained fecal material in the large bowel. There is dilated rectum with fecal material that measures 8.2 cm. There is Toledo catheter in the urinary bladder. Bladder is empty. There is mild per irectal edema. There is no ascites. There is no sign of free air. There is osteopenia and compression deformity noted at L3 T12 T11 and T10. The bony pelvis is intact. IMPRESSION: Significant constipation with rectal fecal impaction. No free air. Perirectal edema. Cardiomegaly with small pleural effusions and basilar mild infiltrate and atelectasis. This could be mild congestive heart failure. Thoracic aortic aneurysm. Constipation slightly worse than last exam. Perirectal edema increased compared to last exam.
--- NOTE | 2019-06-01 21:25 | XR ---
EXAMINATION TYPE: XR chest 2V DATE OF EXAM: 06/01/2019 COMPARISON: 12/13/2015 HISTORY: Fall. Pain. TECHNIQUE: FINDINGS: Heart is enlarged. Thoracic aorta is atheromatous. There is left axillary pacemaker. There is some blunting of the posterior costophrenic angles. There is no obvious heart failure. IMPRESSION: Small pleural effusions are the same or slightly improved compared to last exam. No obvio us heart failure. Atheromatous aorta.
[2019-06-01 21:37] LABS: Glucose,Whole Blood 56 mg/dL (75-99)
[2019-06-01 21:54] LABS: Glucose,Whole Blood 99 mg/dL (75-99)
[2019-06-01] MEDS ORDERED: ALPRAZolam 0.25 MG TAB PO PRN (23:18)
[2019-06-01] MEDS ORDERED: MORPHINE SULFATE 4 MG/ML SYRINGE IV PRN (23:18)
[2019-06-01] MEDS ORDERED: NALOXONE 0.4 MG/ML 1 ML VIAL IV PRN (23:18)
[2019-06-01] MEDS ORDERED: HYDROmorphone 0.5 MG/0.5 ML SYRINGE IVP PRN (23:18)
[2019-06-01] MEDS ORDERED: LORazepam 2 MG/ML INJ IV PRN (23:18)
[2019-06-01] MEDS ORDERED: SODIUM CHLORIDE 0.9% 1,000 ML IV SCH (23:30)
[2019-06-02 07:16] LABS: Glucose,Whole Blood 51 mg/dL (75-99)
[2019-06-02 07:39] LABS: Glucose,Whole Blood 207 mg/dL (75-99)
--- NOTE | 2019-06-02 10:14 | XR ---
EXAMINATION TYPE: XR abdomen 1V DATE OF EXAM: 06/02/2019 9:51 AM CLINICAL HISTORY: Constipation. Abdominal distention. TECHNIQUE: Two portable frontal KUB images of the abdomen are obtained. COMPARISON: CT abdomen and pelvis from yesterday. FINDINGS: Scattered gas is seen in slightly prominent also nondistended small bowel loops. Gas and fe trevor material is seen in some prominent peripheral colonic loops. Improved fecal prominence in the rec ronda. Osseous structures are demineralized. Underlying scoliosis. Moderate narrowing of both hip joint s. Compression type fracture T12 level remains present. Small left pleural effusion with left basilar atelectasis and/or infiltrate. New Toledo catheter is present. IMPRESSION: Overall nonspecific but felt to be nonobstructive bowel gas pattern. Improved distal or r ectal fecal stasis noted.
[2019-06-02 11:47] LABS: Glucose,Whole Blood 379 mg/dL (75-99)
--- NOTE | 2019-06-02 12:01 | US ---
EXAMINATION TYPE: US carotid duplex BILAT DATE OF EXAM: 06/02/2019 COMPARISON: US 2010 CLINICAL HISTORY: syncope. EXAM MEASUREMENTS: RIGHT: Peak Systolic Velocity (PSV) cm/sec ----- Right CCA: 68.6 ----- Right ICA: 109.2 ----- Right ECA: 151.0 ICA/CCA ratio: 1.6 RIGHT: End Diastole cm/sec ----- Right CCA: 15.4 ----- Right ICA: 9.0 ----- Right ECA: 17.1 LEFT: Peak Systolic Velocity (PSV) cm/sec ----- Left CCA: 80.9 ----- Left ICA: 90.8 ----- Left ECA: 110.6 ICA/CCA ratio: 1.1 LEFT: End Diastole cm/sec ----- Left CCA: 11.7 ----- Left ICA: 20.4 ----- Left ECA: 0.0 VERTEBRALS (direction of flow): Right Vertebral: Antegrade Left Vertebral: Antegrade Rhythm: Normal fairly severe shadowing hyperechoic plaque right carotid bulb on current study felt increased from 20 11. More mild to moderate peripheral plaque left carotid bulb. Velocity measurements and ratios remai n within normal limits bilaterally. IMPRESSION: Asymmetric right-sided increased plaque without significant stenosis clearly seen in eit her internal carotid artery. Criteria for Assigning % of Stenosis / Diameter reduction (Estimation based on the indirect measurements of the internal carotid artery velocities (ICA PSV). 1. Normal (no stenosis)=ICA PSV < 125 cm/s: ratio < 2.0: ICA EDV<40 cm/s. 2. Less than 50% stenosis=ICA PSV < 125 cm/s: ratio < 2.0: ICA EDV<40 cm/s. 3. 50 to 69% stenosis=ICA PSV of 125 to 230 cm/s: ration 2.0 ? 4.0: ICA EDV 40-100 cm/s. 4. Greater than 70% stenosis to near occlusion= ICA PSV > 230 cm/s: ratio > 4.0: ICA EDV > 100 cm/s. 5. Near occlusion= ICA PSV velocities may be low or undetectable: variable ratio and ICA EDV. 6. Total occlusion=unable to detect flow.
--- NOTE | 2019-06-02 12:25 | P.HPIM ---
History of Present Illness H&P Date: 06/02/19 This is an 84-year-old female patient of Dr. Pope with past medical history of paroxysmal atrial fibrillatio on Coumadin, hyperlipidemia, diabetes mellitus type 2, DVT in the left lower extremity and left upper extremity after pacer maker wire manipulation, macular degeneration, ovarian cancer status post total hysterectomy, skin cancer, osteoporosis and compression fractures, chronic constipation. Patient had a hospitalization in January 2019 for abdominal pain secondary to small bowel obstruction and severe fecal impaction. Patient was treated with enemas with resolution. Patient was brought in to [facility] emergency center by EMS from [facility] where she resides alone. resides at [facility]. Daughter related to the ER at that patient had a fall and was found by the staff on the floor with a phone next to her. She had her lunch delivered around 1220 and patient was found at 4:50 in the afternoon on the floor. Patient is unable to give any reliable information but it does appear the patient may have had a syncopal episode. There is also concern for dementia. Patient is noted to have significant ecchymosis to the bilateral lower extremities. Patient was unable to recall when she had her last bowel movement or was able to urinate. Abdomen has increased in size over 2 days since the daughter last saw the patient. In the emergency center, patient was afebrile, heart rate 92, blood pressure 118/72, pulse ox 95% on room air. WBC 13.5, hemoglobin 10.9, platelet count 129, INR 2.4. Sodium 134, potassium 3.6, chloride 96, CO2 33, BUN 35, creatinine 0.74. Initial blood sugar 90. Patient has had labile blood sugars initially 56 followed by 99 then 51 followed by 207. TSH 1.630, urinalysis was clear with nitrate and leukoesterase negative. CAT scan of the abdomen and pelvis revealed moderate to severe constipation with impaction. Patient was also retaining urine and Toledo catheter was placed with return of large volume of urine around 700 mL. Patient underwent fecal disimpaction while in the emergency center. No blood or tarriness was noted to the stool. Patient was placed on the MedSur floor and consult requested with cardiology. Echocardiogram and EKG have been ordered and pacemaker to be interrogated. Review of Systems Constitutional: Reports fatigue, Reports poor appetite, Denies chills, Denies fever Eyes: denies blurred vision, denies pain Ears, nose, mouth and throat: Reports vertigo, Denies dysphagia, Denies headache, Denies nasal congestion, Denies nasal discharge, Denies sore throat Cardiovascular: Denies chest pain, Denies shortness of breath Respiratory: Denies cough, Denies dyspnea, Denies respiratory infections, Denies wheezing Gastrointestinal: Reports constipation, Denies abdominal pain, Denies BRBPR, Denies diarrhea, Denies melena, Denies nausea, Denies vomiting Genitourinary: Reports as per HPI, Denies dysuria, Denies hematuria Menstruation: Reports post hysterectomy Musculoskeletal: Reports frequent falls, Reports gait dysfunction, Reports muscle weakness, Denies myalgias Integumentary: Reports darkening of skin, Denies pruritus, Denies rash, Denies wounds Neurological: Reports gait dysfunction, Denies change in mentation, Denies change in speech, Denies numbness, Denies weakness Psychiatric: Denies anxiety, Denies depression Endocrine: Denies fatigue, Denies weight change Past Medical History Past Medical History: Atrial Fibrillation, Cancer, CVA/TIA, Diabetes Mellitus, Deep Vein Thrombosis (DVT), Eye Disorder, Hyperlipidemia Additional Past Medical History / Comment(s): Paroxysmal Afib, ovarian cancer with total hysterecomy, skin cancer with removals, IDDM type II, 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 History of Any Multi-Drug Resistant Organisms: None Reported Past Surgical History: AICD, Cardiac Ablation, EPS, Hysterectomy, Pacemaker, Tonsillectomy Additional Past Surgical History / Comment(s): AICD-pt cannot recall year it was placed but believes it was done in [place], [place], pacemaker, total hysterectomy, cataracts removed, colonoscopy-pre cancerous polyps, skin cancer removals. Past Anesthesia/Blood Transfusion Reactions: Previous Problems w/ Anesthesia, Motion Sickness Additional Past Anesthesia/Blood Transfusion Reaction / Comment(s): "slept for t hree days after anesthesia"- vertigo Type of Cardiac Device: Permanent Pacemaker, AICD Device Placement Date:: 10/01/2010 [facility]-pacer. Pt does not know year AICD placed. Past Psychological History: No Psychological Hx Reported Additional Psychological History / Comment(s): Pt resides at [facility]. She uses a walker and also has a wheelchair. She has [facility] health care. She has a glucometer. Smoking Status: Never smoker Past Alcohol Use History: None Reported Past Drug Use History: None Reported - Past Family History Father Family Medical History: CVA/TIA Additional Family Medical History / Comment(s): Father from stroke. Sister(s) Family Medical History: Cancer Additional Family Medical History / Comment(s): Patient has 3 sisters one had ovarian, squamous cancer in the mouth. 2 sisters with no major medical problems. Patient does not have any brothers. Mother Additional Family Medical History / Comment(s): Mother from CVA. Son(s) Additional Family Medical History / Comment(s): Patient has 2 boys and one girl with no major medical problems. Medications and Allergies Home Medications Medication Instructions Recorded Confirmed Type Bumetanide [BUMEX] 2 mg PO DAILY 10/02/15 06/02/19 History Metolazone [Zaroxolyn] 2.5 mg PO TUTH 10/02/15 06/02/19 History Vit C/E/Zn/Coppr/Lutein/Zeaxan 1 cap PO BID 12/12/15 06/02/19 History [Preservision Areds 2 Softgel] INSULIN ASPART (NovoLOG) [NovoLOG See Protocol SQ AC-TID 10/14/18 06/02/19 History (formulary)] Insulin Glargine,Hum.rec.anlog 21 units SQ DAILY 10/14/18 06/02/19 History [Toujesigifredo Solostar] Potassium Chloride [Klor-Con 20] 20 meq PO DAILY 10/14/18 06/02/19 History Warfarin Sodium [Coumadin] 3 mg PO TUTH 10/14/18 06/02/19 History sitaGLIPtin PHOS/metFORMIN HCL 1 tab PO BID 10/14/18 06/02/19 History [Janumet 50-500 mg Tablet] Magnesium Oxide [Mag-Ox] 400 mg PO HS 01/30/19 06/02/19 History Cholecalciferol (Vitamin D3) 2,000 unit PO DAILY 06/02/19 06/02/19 History [Vitamin D3] Sennosides [Senna] 17.2 mg PO HS 06/02/19 06/02/19 History Warfarin [Coumadin] 1.5 mg PO SUMOWEFRSA 06/02/19 06/02/19 History Allergies Allergy/AdvReac Type Severity Reaction Status Date / Time azithromycin Allergy Unknown Verified 06/02/19 11:05 erythromycin base Allergy Dyspnea Verified 06/02/19 11:05 sucralfate [From Carafate] Allergy Unknown Verified 06/02/19 11:05 Phenothiazines AdvReac Severe Hallucinati Verified 06/02/19 11:05 ons heparin AdvReac blood clots Verified 06/02/19 11:05 metoclopramide HCl AdvReac Hallucinati Verified 06/02/19 11:05 [From Reglan] ons all -mycins Allergy Dyspnea Uncoded 06/02/19 11:05 Physical Exam Vitals: Vital Signs Temp Pulse Pulse Resp BP BP Pulse Ox 06/02/19 05:30 98.3 F 86 17 115/76 92 L 06/02/19 01:23 98.3 F 88 17 132/75 96 06/02/19 01:20 17 06/02/19 00:31 79 16 135/80 95 06/01/19 22:32 87 20 113/54 94 L 06/01/19 17:33 98.1 F 92 18 118/72 95 Intake and Output 06/01/19 06/02/19 06/02/19 22:59 06:59 14:59 Output Total 750 200 Balance -750 -200 Output: Urine 750 200 Other: Voiding Method Indwelling Catheter Indwelling Catheter Weight 45.359 kg 45.359 kg Gen: This is an 84-year-old thin female. Patient is resting in bed appears to be comfortable. No acute distress noted. HEENT: Head is atraumatic, normocephalic. Pupils equal, round. Sclerae is an icteric. NECK: Supple. No JVD. No lymphadenopathy. No thyromegaly. LUNGS: Clear to auscultation. No wheezes or rhonchi. No intercostal retractions. HEART: Regular rate and rhythm. Systolic ejection murmur. ABDOMEN: Soft. Bowel sounds are present. No masses. No tenderness. Toledo with denisa urine. EXTREMITIES: No pedal edema. No calf tenderness. Dorsalis pedis +2 bilaterally. Significant ecchymosis to bilateral lower extremities. NEUROLOGICAL: Patient is awake, alert and oriented to person. Cranial nerves 2 through 12 are grossly intact. Results CBC & Chem 7: 06/01/19 19:26 06/01/19 19:26 Labs: Abnormal Lab Results - Last 24 Hours (Table) 06/01/19 06/01/19 06/01/19 Range/Units 19:26 19:26 19:26 WBC 13.5 H (3.8-10.6) k/uL Hgb 10.9 L (11.4-16.0) gm/dL Hct 33.7 L (34.0-46.0) % Plt Count 129 L (150-450) k/uL Neutrophils # 11.9 H (1.3-7.7) k/uL Lymphocytes # 0.8 L (1.0-4.8) k/uL PT 23.3 H (9.0-12.0) sec INR 2.4 H (<1.2) APTT 32.5 H (22.0-30.0) sec Sodium 134 L (137-145) mmol/L Chloride 96 L (98-107) mmol/L Carbon Dioxide 33 H (22-30) mmol/L BUN 35 H (7-17) mg/dL POC Glucose (mg/dL) (75-99) mg/dL AST 41 H (14-36) U/L Total Protein 6.1 L (6.3-8.2) g/dL Albumin 3.4 L (3.5-5.0) g/dL 06/01/19 06/02/19 06/02/19 Range/Units 21:35 07:15 07:37 WBC (3.8-10.6) k/uL Hgb (11.4-16.0) gm/dL Hct (34.0-46.0) % Plt Count (150-450) k/uL Neutrophils # (1.3-7.7) k/uL Lymphocytes # (1.0-4.8) k/uL PT (9.0-12.0) sec INR (<1.2) APTT (22.0-30.0) sec Sodium (137-145) mmol/L Chloride (98-107) mmol/L Carbon Dioxide (22-30) mmol/L BUN (7-17) mg/dL POC Glucose (mg/dL) 56 L 51 L 207 H (75-99) mg/dL AST (14-36) U/L Total Protein (6.3-8.2) g/dL Albumin (3.5-5.0) g/dL Thrombosis Risk Factor Assmnt - DVT/VTE Prophylaxis DVT/VTE Prophylaxis: Pharmacologic Prophylaxis ordered - Choose All That Apply Each Factor Represents 1 point: Swollen legs (current) Each Risk Factor Represents 3 Points: Age 75 years or older, History of DVT/PE Other congenital or acquired thrombophilia - If yes, enter type in comment: No Thrombosis Risk Factor Assessment Total Risk Factor Score: 7 Thrombosis Risk Factor Assessment Level: High Risk Assessment and Plan Plan: 1. Fall with possible syncopal episode. Patient on youth nutritional monitor, cardiology consult, echocardiogram and EKG has been ordered and pacemaker to be interrogated. Obtain carotid Doppler. Concern that this could be related to hypoglycemia versus vasovagal or arrhythmia. PT and OT consults. 2. Urinary retention requiring Toledo catheter placement most likely secondary to constipation. 3. Constipation with fecal impaction status post disimpaction. Continue Sen okot 2 daily. Stop IV fluids. Hold Bumex and Zaroxolyn until tomorrow. 4. Underlying dementia. 5. Diabetes mellitus type 2 with labile blood sugars, may have contributed to fall. Toujeo will be discontinued for now. Continue Janumet 50/500 twice daily. 6. Paroxysmal atrial fibrillation. Continue Coumadin at home dosing. Recheck INR tomorrow. 7. Macular degeneration with injections done on Tuesday, stable continue eyedrops. 8. History of CVA, stable. 9. Hyperlipidemia. Currently off statin. 10. History of DVT, stable. 11. Chronic low back pain and compression fractures secondary to severe osteoporosis, stable. 12. Chronic systolic heart failure. Hold Lasix and Zaroxolyn until tomorrow. 13. DVT prophylaxis. Continue Coumadin. 14. GI prophylaxis. Protonix. Patient will be admitted to the hospital for a minimum of 2 night stay. Discharge plan: Most likely return to [facility] with homecare. Impression and plan of care have been directed as dictated by the signing physician. Sameera Ward nurse practitioner acting as scribe for signing physician.
[2019-06-02] MEDS: INSULIN ASPART (NovoLOG) 100 UNIT/ML VIAL SQ SCH ×3 (12:55→20:58)
[2019-06-02] MEDS: metFORMIN 500 MG TAB PO SCH ×2 (12:55→19:46)
--- NOTE | 2019-06-02 13:33 | P.CRDCN ---
History of Present Illness History of present illness: HISTORY OF PRESENTING ILLNESS This is a pleasant 84-year-old female past medical history significant for paroxysmal atrial fibrillation maintained on Coumadin, dyslipidemia, sick s inus syndrome status post permanent pacemaker implantation in 2010 and SVT ablation in 1999. She followed with Dr. Flood in the office up until 2016 at which time she has only been following with her primary care physician. She states this far she is concerned her pacemaker is checked remotely. We have been asked to see in consultation for syncope. The patient lives at [facility] and typically is quite active and takes care of herself. Over the previous 24 hours she has had significant amount of confusion. She states she was found in her apartment on the ground however she doesn't remember how she got there. She doesn't remember if she passed out. She denies feeling any s ymptoms of chest pain, shortness of breath, dizziness or palpitations however she states she really does not remember the events surrounding the episode at all. There is no EKG obtained on arrival. CT of the head and spine reveal mild atrophy with no acute intracranial abnormality, mild left sinusitis and mild spondylitic changes in the cervical spine with no fractures. CT of the abdomen and pelvis reveals significant constipation with rectal fecal impaction, no free air and perirectal edema noted. Cardiomegaly with small pleural effusions and basilar mild infiltrate and atelectasis. Laboratory data reviewed, WBC 13.5, hemoglobin 10.9, platelets 129, INR 2.4, sodium 134, potassium 3.6, creatinine 0.74, CK on arrival 65. The patient was seen and examined sitting up in bed in no acute distress. She has no symptoms of chest pain, shortness of breath, dizziness or palpitations. Current daily cardiac medications at home include Bumex 2 mg daily, Zaroxolyn 2.5 mg on Tuesday and and Coumadin. REVIEW OF SYSTEMS At the time of my exam: CONSTITUTIONAL: Denies fever or chills. CARDIOVASCULAR: Denies chest pain, shortness of breath, orthopnea, PND or palpitations. RESPIRATORY: Denies cough. GASTROINTESTINAL: Denies abdominal pain, diarrhea, constipation, nausea or vomiting. MUSCULOSKELETAL: Denies myalgias. NEUROLOGIC: Denies numbness, tingling or weakness. ENDOCRINE: Denies fatigue, weight change, polydipsia or polyurina. GENITOURINARY: Denies burning, hematuria or urgency with micturation. HEMATOLOGIC: Denies history of anemia or bleeding. PHYSICAL EXAMINATION Blood pressure 115/76 heart rate 86 afebrile and maintaining oxygen saturation on room air. CONSTITUTIONAL: No apparent distress. HEENT: Head is normocephalic. Pupils are equal, round. Sclerae anicteric. Mucous membranes of the mouth are moist. No JVD. No carotid bruit. CHEST EXAMINATION: Lungs are clear to auscultation. No chest wall tenderness is noted on palpation or with deep breathing. HEART EXAMINATION: Regular rate and rhythm. S1, S2 heard. Significant systolic ejection murmur at the base and left sternal border, no gallops or rub. ABDOMEN: Soft, nontender. Positive bowel sounds. EXTREMITIES: 2+ peripheral pulses, no lower extremity edema and no calf tenderness. NEUROLOGIC EXAMINATION: Patient is awake, alert and oriented x3. ASSESSMENT Episode of confusion with possible syncope Leukocytosis Paroxysmal atrial fibrillation on long-term anticoagulation Sick sinus syndrome status post permanent pacemaker implantation Dyslipidemia PLAN Obtain baseline EKG. Pacemaker interrogation obtained and reviewed, unremarkable for an acute arrhythmia. She has 35% battery capacity remaining. Cardiac testing has been unremarkable no evidence to suggest arrhythmia driven syncope. Ongoing medical management and evaluation, we will continue to follow as needed. Thank you kindly for this consultation. Nurse Practitioner note has been reviewed, I agree with a documented findings and plan of care. Patient was seen and examined. 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 History of Any Multi-Drug Resistant Organisms: None Reported Past Surgical History: AICD, Cardiac Ablation, EPS, Hysterectomy, Pacemaker, Tonsillectomy Additional Past Surgical History / Comment(s): AICD-pt cannot recall year it was placed but believes it was done in [place], [place], pacemaker, total hysterectomy, cataracts removed, colonoscopy-pre cancerous polyps, skin cancer removals. Past Anesthesia/Blood Transfusion Reactions: Previous Problems w/ Anesthesia, Motion Sickness Additional Past Anesthesia/Blood Transfusion Reaction / Comment(s): "slept for three days after anesthesia"- vertigo Type of Cardiac Device: Permanent Pacemaker, AICD Device Placement Date:: 10/01/2010 [facility]-pacer. Pt does not know year AICD placed. Past Psychological History: No Psychological Hx Reported Additional Psychological History / Comment(s): Pt resides at [facility]. She uses a walker and also has a wheelchair. She has [employer] care. She has a glucometer. Smoking Status: Never smoker Past Alcohol Use History: None Reported Past Drug Use History: None Reported - Past Family History Father Family Medical History: CVA/TIA Sister(s) Family Medical History: Cancer Additional Family Medical History / Comment(s): ovarian, squamous in the mouth Mother Additional Family Medical History / Comment(s): Mother from CVA. Son(s) Additional Family Medical History / Comment(s): Patient has 2 boys and one girl with no major medical problems. Medications and Allergies Home Medications Medication Instructions Recorded Confirmed Type Bumetanide [BUMEX] 2 mg PO DAILY 10/02/15 06/02/19 History Metolazone [Zaroxolyn] 2.5 mg PO TUTH 10/02/15 06/02/19 History Vit C/E/Zn/Coppr/Lutein/Zeaxan 1 cap PO BID 12/12/15 06/02/19 History [Preservision Areds 2 Softgel] INSULIN ASPART (NovoLOG) [NovoLOG See Protocol SQ AC-TID 10/14/18 06/02/19 History (formulary)] Insulin Glargine,Hum.rec.anlog 21 units SQ DAILY 10/14/18 06/02/19 History [Toujeo Solostar] Potassium Chloride [Klor-Con 20] 20 meq PO DAILY 10/14/18 06/02/19 History Warfarin Sodium [Coumadin] 3 mg PO TUTH 10/14/18 06/02/19 History sitaGLIPtin PHOS/metFORMIN HCL 1 tab PO BID 10/14/18 06/02/19 History [Janumet 50-500 mg Tablet] Magnesium Oxide [Mag-Ox] 400 mg PO HS 01/30/19 06/02/19 History Cholecalciferol (Vitamin D3) 2,000 unit PO DAILY 06/02/19 06/02/19 History [Vitamin D3] Sennosides [Senna] 17.2 mg PO HS 06/02/19 06/02/19 History Warfarin [Coumadin] 1.5 mg PO SUMOWEFRSA 06/02/19 06/02/19 History Allergies Allergy/AdvReac Type Severity Reaction Status Date / Time azithromycin Allergy Unknown Verified 06/02/19 11:05 erythromycin base Allergy Dyspnea Verified 06/02/19 11:05 sucralfate [From Carafate] Allergy Unknown Verified 06/02/19 11:05 Phenothiazines AdvReac Severe Hallucinati Verified 06/02/19 11:05 ons heparin AdvReac blood clots Verified 06/02/19 11:05 metoclopramide HCl AdvReac Hallucinati Verified 06/02/19 11:05 [From Reglan] ons all -mycins Allergy Dyspnea Uncoded 06/02/19 11:05 Physical Exam Vitals: Vital Signs Temp Pulse Pulse Resp BP BP Pulse Ox 06/02/19 05:30 98.3 F 86 17 115/76 92 L 06/02/19 01:23 98.3 F 88 17 132/75 96 06/02/19 01:20 17 06/02/19 00:31 79 16 135/80 95 06/01/19 22:32 87 20 113/54 94 L 06/01/19 17:33 98.1 F 92 18 118/72 95 Intake and Output 06/01/19 06/02/19 06/02/19 22:59 06:59 14:59 Output Total 750 200 Balance -750 -200 Output: Urine 750 200 Other: Voiding Method Indwelling Catheter Indwelling Catheter Weight 45.359 kg 45.359 kg Results 06/01/19 19:26 06/01/19 19:26 Cardiac Enzymes 06/01/19 Range/Units 19: AST 41 H (14-36) U/L Coagulation 06/01/19 Range/Units 19:26 PT 23.3 H (9.0-12.0) sec APTT 32.5 H (22.0-30.0) sec CBC 06/01/19 Range/Units 19:26 WBC 13.5 H (3.8-10.6) k/uL RBC 3.80 (3.80-5.40) m/uL Hgb 10.9 L (11.4-16.0) gm/dL Hct 33.7 L (34.0-46.0) % Plt Count 129 L (150-450) k/uL Comprehensive Metabolic Panel 06/01/19 Range/Units 19:26 Sodium 134 L (137-145) mmol/L Potassium 3.6 (3.5-5.1) mmol/L Chloride 96 L (98-107) mmol/L Carbon Dioxide 33 H (22-30) mmol/L BUN 35 H (7-17) mg/dL Creatinine 0.74 (0.52-1.04) mg/dL Glucose 90 (74-99) mg/dL Calcium 9.2 (8.4-10.2) mg/dL AST 41 H (14-36) U/L ALT 34 (4-34) U/L Alkaline Phosphatase 76 (38-126) U/L Total Protein 6.1 L (6.3-8.2) g/dL Albumin 3.4 L (3.5-5.0) g/dL Current Medications Generic Name Dose Route Start Last Admin Trade Name Freq PRN Reason Stop Dose Admin Alprazolam 0.25 mg 06/01/19 23:18 Xanax PO Q6HR PRN Anxiety Hydromorphone HCl 0.5 mg 06/01/19 23:18 Dilaudid IVP Q3HR PRN Moderate Pain Sodium Chloride 1,000 mls @ 75 mls/hr 06/01/19 23:30 06/02/19 00:27 Saline 0.9% IV 75 mls/hr .[id number] MELQUIADES Administration Insulin Aspart 0 unit 06/02/19 12:30 Novolog SQ ACHS MELQUIADES Protocol Lorazepam 0.5 mg 06/01/19 23:18 Ativan IV Q6HR PRN Anxiety Morphine Sulfate 4 mg 06/01/19 23:18 Morphine Sulfate (Inj) IV Q4HR PRN Severe Pain Naloxone HCl 0.2 mg 06/01/19 23:18 Narcan IV Q2M PRN Opioid Reversal Senna/Docusate Sodium 2 each 06/03/19 09:00 Senokot-S PO DAILY MELQUIADES Intake and Output 06/01/19 06/02/19 06/02/19 22:59 06:59 14:59 Output Total 750 200 Balance -750 -200 Output: Urine 750 200 Other: Voiding Method Indwelling Catheter Indwelling Catheter Weight 45.359 kg 45.359 kg 06/01/19 19:26 06/01/19 19:26
[2019-06-02] MEDS: LINAGLIPTIN 5 MG TABLET PO SCH (13:36)
[2019-06-02 16:40] LABS: Glucose,Whole Blood 330 mg/dL (75-99)
[2019-06-02] MEDS ORDERED: WARFARIN 1.5 MG TAB PO SCH (18:00)
[2019-06-02] MEDS: VIT A,C & E-LUTEIN-MINERALS 1 EACH TAB PO SCH (19:46)
[2019-06-02 20:39] LABS: Glucose,Whole Blood 215 mg/dL (75-99)
[2019-06-03 07:01] LABS: Glucose,Whole Blood 64 mg/dL (75-99)
[2019-06-03 07:14] LABS: Glucose,Whole Blood 76 mg/dL (75-99)
[2019-06-03] MEDS: INSULIN ASPART (NovoLOG) 100 UNIT/ML VIAL SQ SCH ×4 (08:02→21:04)
[2019-06-03 08:06] LABS: HCT 32.2 % (34.0-46.0); HGB 10.4 gm/dL (11.4-16.0); MCH 29.1 pg (25.0-35.0); MCHC 32.3 g/dL (31.0-37.0); MCV 90.3 fL (80.0-100.0); Mean Platelet Volume 7.9; Platelet Count 122 k/uL (150-450); RBC 3.56 m/uL (3.80-5.40); RDW 14.2 % (11.5-15.5); WBC 10.3 k/uL (3.8-10.6)
[2019-06-03] MEDS: LINAGLIPTIN 5 MG TABLET PO SCH (08:11)
[2019-06-03] MEDS: PANTOPRAZOLE 40 MG TABLET PO SCH (08:11)
[2019-06-03] MEDS: BUMETANIDE 1 MG TAB PO SCH (08:11)
[2019-06-03] MEDS: SENNOSIDES-DOCUSATE SODIUM 1 EACH TAB PO SCH (08:11)
[2019-06-03] MEDS: VIT A,C & E-LUTEIN-MINERALS 1 EACH TAB PO SCH ×2 (08:11→21:03)
[2019-06-03] MEDS: metFORMIN 500 MG TAB PO SCH ×2 (08:11→21:03)
[2019-06-03 08:13] LABS: Glucose,Whole Blood 136 mg/dL (75-99)
[2019-06-03 08:18] LABS: Albumin 2.9 g/dL (3.5-5.0); Calcium 8.7 mg/dL (8.4-10.2); Potassium 3.5 mmol/L (3.5-5.1); Total Bilirubin 0.5 mg/dL (0.2-1.3); Total Protein 5.5 g/dL (6.3-8.2)
[2019-06-03] MEDS: POTASSIUM CHLORIDE ER 20 MEQ TAB.ER PO SCH (08:18)
[2019-06-03 08:20] LABS: INR 1.5 (<1.2); Prothrombin Time 14.9 sec (9.0-12.0)
[2019-06-03] MEDS ORDERED: MAGNESIUM HYDROXIDE 2,400 MG/10 ML CUP PO PRN (09:11)
[2019-06-03] MEDS: SIMETHICONE 80 MG CHEWABLE PO SCH ×2 (10:23→21:04)
--- NOTE | 2019-06-03 10:47 | XR ---
EXAMINATION TYPE: XR KUB portable DATE OF EXAM: 06/03/2019 COMPARISON: 06/02/2019 HISTORY: 84-year-old female constipation and abdominal distention FINDINGS: Supine imaging limited for assessment of free air. Moderate stool burden. Severe distention of the rectum up to nearly 10 cm wide. Patulous bowel midabd omen measures 8.4 cm, probably colon. No obvious dilated small bowel loops are seen. IMPRESSION: 1. Persistent fecal impaction with the rectum distended up to nearly 10 cm wide. Disimpaction is advi sed. On CT, the rectal wall edema could be reactive due to venous congestion or could represent ische brett stercoral colitis. Correlate with lactic acid levels. Again, disimpaction is advised. 2. A patulous bowel loop, probably colon in the left midabdomen measuring up to 8.4 cm. Close follow- up recommended.
[2019-06-03] MEDS ORDERED: ACETAMINOPHEN TAB 325 MG TAB PO PRN (12:03)
[2019-06-03] MEDS ORDERED: NA PHOS,M-B/NA PHOS,DI-BA 133 ML ENEMA RECTAL STA (12:03)
[2019-06-03 12:16] LABS: Glucose,Whole Blood 201 mg/dL (75-99)
--- NOTE | 2019-06-03 13:44 | P.PN ---
Subjective Progress Note Date: 06/03/19 This is an 84-year-old female patient of Dr. Pope with past medical history of paroxysmal atrial fibrillatio on Coumadin, hyperlipidemia, diabetes mellitus type 2, DVT in the left lower extremity and left upper extremity after pacer maker wire manipulation, macular degeneration, ovarian cancer status post total hysterectomy, skin cancer, osteoporosis and compression fractures, chronic constipation. Patient had a hospitalization in January 2019 for abdominal pain secondary to small bowel obstruction and severe fecal impaction. Patient was treated with enemas with resolution. Patient was brought in to [facility] emergency center by EMS from [facility] where she resides alone. resides at [facility]. Daughter related to the ER at that patient had a fall and was found by the staff on the floor with a phone next to her. She had her lunch delivered around 1220 and patient was found at 4:50 in the afternoon on the floor. Patient is unable to give any reliable information but it does appear the patient may have had a syncopal episode. There is also concern for dementia. Patient is noted to have significant ecchymosis to the bilateral lower extremities. Patient was unable to recall when she had her last bowel movement or was able to urinate. Abdomen has increased in size over 2 days since the daughter last saw the patient. In the emergency center, patient was afebrile, heart rate 92, blood pressure 118/72, pulse ox 95% on room air. WBC 13.5, hemoglobin 10.9, platelet count 129, INR 2.4. Sodium 134, potassium 3.6, chloride 96, CO2 33, BUN 35, creatinine 0.74. Initial blood sugar 90. Patient has had labile blood sugars initially 56 followed by 99 then 51 followed by 207. TSH 1.630, urinalysis was clear with nitrate and leukoesterase negative. CAT scan of the abdomen and pelvis revealed moderate to severe constipation with impaction. Patient was also retaining urine and Toledo catheter was placed with return of large volume of urine around 700 mL. Patient underwent fecal disimpaction while in the emergency center. No blood or tarriness was noted to the stool. Patient was placed on the MedSurg floor and consult requested with cardiology. Echocardiogram and EKG have been ordered and pacemaker to be interrogated. 06/02: The patient is complaining of some abdominal discomfort. She has abdominal distention today. Toledo catheter is in place which will be discontinued today.. Bowel sounds are hyperactive. Maalox plus added and abdominal x-ray was done. Persistent fecal impaction with rectum distended up to nearly 10 cm wide. Disimpaction is advised. CAT scan the rectal edema wall could be reactive due to venous congestion or could represent ischemic stair coral colitis. Correlate with lactic acid levels. Again disimpaction is advised. A patulous bowel loop probably: Is in the mid abdomen measuring up to 8.4 cm. Close observation is recommended. Fleets enema was ordered followed by milk of molasses enema if no results. Objective - Vital Signs Vital signs: Vital Signs Temp 99.2 F 06/03/19 05:23 Pulse 90 06/03/19 05:23 Resp 17 06/03/19 05:23 BP 136/69 06/02/19 21:00 Pulse Ox 94 L 06/03/19 05:23 Intake & Output 06/02/19 06/03/19 06/03/19 17:59 06:59 18:59 Intake Total Output Total Balance Intake: Oral Output: Urine Urine/Stool Mix Other: Voiding Method # Bowel Movements - Exam Review of Systems Constitutional: Reports fatigue, Reports poor appetite, Denies chills, Denies fever Eyes: denies blurred vision, denies pain Ears, nose, mouth and throat: Reports vertigo, Denies dysphagia, Denies headac he, Denies nasal congestion, Denies nasal discharge, Denies sore throat Cardiovascular: Denies chest pain, Denies shortness of breath Respiratory: Denies cough, Denies dyspnea, Denies respiratory infections, Denies wheezing Gastrointestinal: Reports constipation, Denies abdominal pain, Denies BRBPR, Denies diarrhea, Denies melena, Denies nausea, Denies vomiting Genitourinary: Reports as per HPI, Denies dysuria, Denies hematuria Menstruation: Reports post hysterectomy Musculoskeletal: Reports frequent falls, Reports gait dysfunction, Reports mus matheus weakness, Denies myalgias Integumentary: Reports darkening of skin, Denies pruritus, Denies rash, Denies wounds Neurological: Reports gait dysfunction, Denies change in mentation, Denies change in speech, Denies numbness, Denies weakness Psychiatric: Denies anxiety, Denies depression Endocrine: Denies fatigue, Denies weight change Physical examination Gen: This is an 84-year-old thin female. Patient is resting in bed appears to be somewhat comfortable. HEENT: Head is atraumatic, normocephalic. Pupils equal, round. Sclerae is anicteric. NECK: Supple. No JVD. No lymphadenopathy. No thyromegaly. LUNGS: Clear to auscultation. No wheezes or rhonchi. No intercostal retractions. HEART: Regular rate and rhythm. Systolic ejection murmur. ABDOMEN: Abdomen is significantly distended. Bowel sounds are hyperactive. No masses. Generalized mild tenderness. Toledo with denisa urine. EXTREMITIES: No pedal edema. No calf tenderness. Dorsalis pedis +2 b ilaterally. Significant ecchymosis to bilateral lower extremities. NEUROLOGICAL: Patient is awake, alert and oriented to person. Cranial nerves 2 through 12 are grossly intact. - Labs CBC & Chem 7: 06/03/19 07:46 06/03/19 07:46 Labs: Abnormal Lab Results - Last 24 Hours (Table) 06/02/19 06/02/19 06/02/19 Range/Units 11:46 16:39 20:38 RBC (3.80-5.40) m/uL Hgb (11.4-16.0) gm/dL Hct (34.0-46.0) % Plt Count (150-450) k/uL PT (9.0-12.0) sec INR (<1.2) Sodium (137-145) mmol/L Carbon Dioxide (22-30) mmol/L BUN (7-17) mg/dL Glucose (74-99) mg/dL POC Glucose (mg/dL) 379 H 330 H 215 H (75-99) mg/dL Total Protein (6.3-8.2) g/dL Albumin (3.5-5.0) g/dL 06/03/19 06/03/19 06/03/19 Range/Units 07:00 07:46 07:46 RBC 3.56 L (3.80-5.40) m/uL Hgb 10.4 L (11.4-16.0) gm/dL Hct 32.2 L (34.0-46.0) % Plt Count 122 L (150-450) k/uL PT 14.9 H (9.0-12.0) sec INR 1.5 H (<1.2) Sodium (137-145) mmol/L Carbon Dioxide (22-30) mmol/L BUN (7-17) mg/dL Glucose (74-99) mg/dL POC Glucose (mg/dL) 64 L (75-99) mg/dL Total Protein (6.3-8.2) g/dL Albumin (3.5-5.0) g/dL 06/03/19 06/03/19 Range/Units 07:46 08:11 RBC (3.80-5.40) m/uL Hgb (11.4-16.0) gm/dL Hct (34.0-46.0) % Plt Count (150-450) k/uL PT (9.0-12.0) sec INR (<1.2) Sodium 134 L (137-145) mmol/L Carbon Dioxide 31 H (22-30) mmol/L BUN 22 H (7-17) mg/dL Glucose 100 H (74-99) mg/dL POC Glucose (mg/dL) 136 H (75-99) mg/dL Total Protein 5.5 L (6.3-8.2) g/dL Albumin 2.9 L (3.5-5.0) g/dL Assessment and Plan Plan: 1. Fall with possible syncopal episode. Patient on youth nutritional monitor, cardiology consult, echocardiogram and EKG has been ordered and pacemaker to be interrogated. Carotid Doppler negative for hemodynamically significant stenosis. Concern that this could be related to hypoglycemia versus vasovagal or arrhythmia. PT and OT consults. 2. Urinary retention requiring Toledo catheter placement most likely secondary to constipation. 3. Constipation with fecal impaction not completely disimpacted. Colace added, Senokot S as needed, fleets enema, milk of molasses enema. Stop IV fluids. 4. Underlying dementia. 5. Diabetes mellitus type 2 with labile blood sugars, may have contributed to fall. Toujeo will be discontinued for now. Continue Janumet 50/500 twice daily. 6. Paroxysmal atrial fibrillation. Continue Coumadin at home dosing. Recheck INR tomorrow. 7. Macular degeneration with injections done on Tuesday, stable continue eyedrops. 8. History of CVA, stable. 9. Hyperlipidemia. Currently off statin. 10. History of DVT, stable. 11. Chronic low back pain and compression fractures secondary to severe os teoporosis, stable. 12. Chronic systolic heart failure. Resume Lasix and Zaroxolyn. 13. DVT prophylaxis. Continue Coumadin. 14. GI prophylaxis. Protonix. Discharge plan: Most likely return to [facility] with homecare. Impression and plan of care have been directed as dictated by the signing physician. Sameera Ward nurse practitioner acting as scribe for signing physician.
[2019-06-03 17:19] LABS: Glucose,Whole Blood 247 mg/dL (75-99)
[2019-06-03] MEDS ORDERED: WARFARIN 3 MG TAB PO ONE (18:00)
[2019-06-03 20:53] LABS: Glucose,Whole Blood 311 mg/dL (75-99)
[2019-06-04 02:16] LABS: Glucose,Whole Blood 136 mg/dL (75-99)
[2019-06-04 07:04] LABS: Glucose,Whole Blood 220 mg/dL (75-99)
[2019-06-04] MEDS: BUMETANIDE 1 MG TAB PO SCH (08:14)
[2019-06-04] MEDS: LINAGLIPTIN 5 MG TABLET PO SCH (08:15)
[2019-06-04] MEDS: SIMETHICONE 80 MG CHEWABLE PO SCH ×2 (08:15→21:16)
[2019-06-04] MEDS: INSULIN ASPART (NovoLOG) 100 UNIT/ML VIAL SQ SCH ×4 (08:15→21:16)
[2019-06-04] MEDS: VIT A,C & E-LUTEIN-MINERALS 1 EACH TAB PO SCH ×2 (08:15→21:17)
[2019-06-04] MEDS: SENNOSIDES-DOCUSATE SODIUM 1 EACH TAB PO SCH (08:15)
[2019-06-04] MEDS: POTASSIUM CHLORIDE ER 20 MEQ TAB.ER PO SCH (08:15)
[2019-06-04] MEDS: metFORMIN 500 MG TAB PO SCH ×2 (08:15→21:16)
[2019-06-04] MEDS: PANTOPRAZOLE 40 MG TABLET PO SCH (08:15)
[2019-06-04 10:05] LABS: INR 1.6 (<1.2); Prothrombin Time 15.9 sec (9.0-12.0)
[2019-06-04 10:31] LABS: HCT 33.3 % (34.0-46.0); HGB 10.6 gm/dL (11.4-16.0); MCHC 31.8 g/dL (31.0-37.0); MCV 91.2 fL (80.0-100.0); Mean Platelet Volume 7.8; Platelet Count 139 k/uL (150-450); RBC 3.65 m/uL (3.80-5.40); RDW 14.2 % (11.5-15.5); WBC 9.2 k/uL (3.8-10.6)
[2019-06-04 10:49] LABS: Albumin 2.7 g/dL (3.5-5.0); Calcium 8.5 mg/dL (8.4-10.2); Total Bilirubin 0.3 mg/dL (0.2-1.3); Total Protein 5.4 g/dL (6.3-8.2)
[2019-06-04 11:56] LABS: Glucose,Whole Blood 194 mg/dL (75-99)
--- NOTE | 2019-06-04 12:00 | ECHOF ---
Referral Reason:near syncope murmur MEASUREMENTS -------- HEIGHT: 147.3 cm WEIGHT: 45.4 kg BP: 128/58 RVIDd: 3.2 cm (< 3.3) IVSd: 1.2 cm (0.6 - 1.1) LVIDd: 3.4 cm (3.9 - 5.3) LVPWd: 1.5 cm (0.6 - 1.1) IVSs: 1.7 cm LVIDs: 1.8 cm LVPWs: 1.8 cm LAESV Index (A-L): 30.56 ml/m Ao Diam: 3.2 cm (2.0 - 3.7) AV Cusp: 1.3 cm (1.5 - 2.6) MV EXCURSION: 15.135 mm (> 18.000) MV EF SLOPE: 82 mm/s (70 - 150) EPSS: 0.1 cm MV E Samuel: 0.87 m/s MV DecT: 179 ms MV A Samuel: 1.50 m/s MV E/A Ratio: 0.58 AV maxP.33 mmHg AV meanP.69 mmHg AR PHT: 423 ms RAP: 5.00 mmHg RVSP: 46.56 mmHg FINDINGS -------- Sinus rhythm. This was a technically adequate study. The left ventricular size is normal. There is moderate concentric left ventricular hypertrophy. O verall left ventricular systolic function is normal with, an EF between 55 - 60 %. Sigmoid shaped s eptum with focal hypertrophy of the basal septum. The remaining wall thickness is normal. Left vent ricular fillimg pressure cannot be estimated due to severe mitral annular calcification. The right ventricle is normal in size. LA is midly dilated 29-33ml/m2. The right atrium was not well visualized. Electronic pacemaker lead seen in the right atrial cavity . Interatrial and interventricular septum intact. There is mild aortic regurgitation. There is mild aortic stenosis present. Peak/mean gradient acr oss the Aortic Valve is 40.33mmHg / 21.69mmHg. Severe mitral annular calcification present. Mild mitral regurgitation is present. [id number] tricuspid regurgitation present. There is mild to moderate pulmonary hypertension. The right ventricular systolic pressure, as measured by Doppler, is 46.56mmHg. Trace/mild (physiologic) pulmonic regurgitation. The aortic root and ascending aorta are dilated measuring up to (4.7) cm. IVC Not well visulized. There is no pericardial effusion. CONCLUSIONS -------- 1. Sinus rhythm. 2. This was a technically adequate study. 3. The left ventricular size is normal. 4. There is moderate concentric left ventricular hypertrophy. 5. Overall left ventricular systolic function is normal with, an EF between 55 - 60 %. 6. Sigmoid shaped septum with focal hypertrophy of the basal septum. The remaining wall thickness is normal. 7. Left ventricular fillimg pressure cannot be estimated due to severe mitral annular calcification. 8. The right ventricle is normal in size. 9. LA is midly dilated 29-33ml/m2. 10. The right atrium was not well visualized. 11. Electronic pacemaker lead seen in the right atrial cavity. 12. Interatrial and interventricular septum intact. 13. There is mild aortic regurgitation. 14. There is mild aortic stenosis present. 15. Peak/mean gradient across the Aortic Valve is 40.33mmHg / 21.69mmHg. 16. Severe mitral annular calcification present. 17. Mild mitral regurgitation is present. 18. [id number] tricuspid regurgitation present. 19. There is mild to moderate pulmonary hypertension. 20. The right ventricular systolic pressure, as measured by Doppler, is 46.56mmHg. 21. Trace/mild (physiologic) pulmonic regurgitation. 22. The aortic root and ascending aorta are dilated measuring up to (4.7) cm. 23. IVC Not well visulized. 24. There is no pericardial effusion. RATE INSERTER: Karla Schroeder RDCS
--- NOTE | 2019-06-04 14:57 | P.PN ---
Subjective Progress Note Date: 06/04/19 This is an 84-year-old female patient of Dr. Pope with past medical history of paroxysmal atrial fibrillatio on Coumadin, hyperlipidemia, diabetes mellitus type 2, DVT in the left lower extremity and left upper extremity after pacer maker wire manipulation, macular degeneration, ovarian cancer status post total hysterectomy, skin cancer, osteoporosis and compression fractures, chronic constipation. Patient had a hospitalization in January 2019 for abdominal pain secondary to small bowel obstruction and severe fecal impaction. Patient was treated with enemas with resolution. Patient was brought in to [facility] emergency center by EMS from [facility] where she resides alone. resides at [facility]. Daughter related to the ER at that patient had a fall and was found by the staff on the floor with a phone next to her. She had her lunch delivered around 1220 and patient was found at 4:50 in the afternoon on the floor. Patient is unable to give any reliable information but it does appear the patient may have had a syncopal episode. There is also concern for dementia. Patient is noted to have significant ecchymosis to the bilateral lower extremities. Patient was unable to recall when she had her last bowel movement or was able to urinate. Abdomen has increased in size over 2 days since the daughter last saw the patient. In the emergency center, patient was afebrile, heart rate 92, blood pressure 118/72, pulse ox 95% on room air. WBC 13.5, hemoglobin 10.9, platelet count 129, INR 2.4. Sodium 134, potassium 3.6, chloride 96, CO2 33, BUN 35, creatinine 0.74. Initial blood sugar 90. Patient has had labile blood sugars initially 56 followed by 99 then 51 followed by 207. TSH 1.630, urinalysis was clear with nitrate and leukoesterase negative. CAT scan of the abdomen and pelvis revealed moderate to severe constipation with impaction. Patient was also retaining urine and Toledo catheter was placed with return of large volume of urine around 700 mL. Patient underwent fecal disimpaction while in the emergency center. No blood or tarriness was noted to the stool. Patient was placed on the MedSurg floor and consult requested with cardiology. Echocardiogram and EKG have been ordered and pacemaker to be interrogated. 06/02: The patient is complaining of some abdominal discomfort. She has abdominal distention today. Toledo catheter is in place which will be discontinued today.. Bowel sounds are hyperactive. Maalox plus added and abdominal x-ray was done. Persistent fecal impaction with rectum distended up to nearly 10 cm wide. Disimpaction is advised. CAT scan the rectal edema wall could be reactive due to venous congestion or could represent ischemic stair coral colitis. Correlate with lactic acid levels. Again disimpaction is advised. A patulous bowel loop probably: Is in the mid abdomen measuring up to 8.4 cm. Close observation is recommended. Fleets enema was ordered followed by milk of molasses enema if no results. 06/03: Patient has been afebrile, heart rate 87, blood pressure 120/58, pulse ox 93% on room air. Blood sugars running anywhere from 136-311. Patient had fleets enema and milk of molasses enema ordered and patient did have 2 bowel movements last evening. Post void residual yesterday afternoon was 320. Postvoid residual this morning for 535 and straight cath was done with return of 800 mL. Patient's abdominal pain is improved today. Telemetry will be discontinued. Discharge plan is for subacute rehab at [facility]. Patient will be ready for discharge on Tuesday. Objective - Vital Signs Vital signs: Vital Signs Temp 98.3 F 06/04/19 05:37 Pulse 87 06/04/19 05:37 Resp 16 06/04/19 05:37 BP 128/58 06/04/19 05:37 Pulse Ox 93 L 06/04/19 05:37 Intake & Output 06/03/19 06/04/19 06/04/19 18:59 06:59 18:59 Intake Total 150 590 Output Total 450 800 Balance -300 -210 Intake: Oral 150 590 Output: Urine 450 800 Uretheral (Toledo) 450 Other: Voiding Method Bedside Commode Bedside Commode Bedside Commode Diaper Diaper Diaper # Voids 2 1 # Bowel Movements 1 - Exam Review of Systems Constitutional: Reports fatigue, Reports poor appetite, Denies chills, Denies fever Eyes: denies blurred vision, denies pain Ears, nose, mouth and throat: Reports vertigo, Denies dysphagia, Denies headach e, Denies nasal congestion, Denies nasal discharge, Denies sore throat Cardiovascular: Denies chest pain, Denies shortness of breath Respiratory: Denies cough, Denies dyspnea, Denies respiratory infections, Denies wheezing Gastrointestinal: Reports constipation, denies bloating Denies abdominal pain, Denies BRBPR, Denies diarrhea, Denies melena, Denies nausea, Denies vomiting Genitourinary: Reports as per HPI, Denies dysuria, Denies hematuria Menstruation: Reports post hysterectomy Musculoskeletal: Reports frequent falls, Reports gait dysfunction, Reports muscle weakness, Denies myalgias Integumentary: Reports darkening of skin, Denies pruritus, Denies rash, Denies wounds Neurological: Reports gait dysfunction, Denies change in mentation, Denies change in speech, Denies numbness, Denies weakness Psychiatric: Denies anxiety, Denies depression Endocrine: Denies fatigue, Denies weight change Physical examination Gen: This is an 84-year-old thin female. Patient is resting in bed appears to be somewhat comfortable. HEENT: Head is atraumatic, normocephalic. Pupils equal, round. Sclerae is anicteric. NECK: Supple. No JVD. No lymphadenopathy. No thyromegaly. LUNGS: Clear to auscultation. No wheezes or rhonchi. No intercostal retractions. HEART: Regular rate and rhythm. Systolic ejection murmur. ABDOMEN: Abdomen is significantly distended. Bowel sounds are normal. No masses. No tenderness. EXTREMITIES: No pedal edema. No calf tenderness. Dorsalis pedis +2 bilaterally. Significant ecchymosis to bilateral lower extremities. NEUROLOGICAL: Patient is awake, alert and oriented to person. Cranial nerves 2 through 12 are grossly intact. - Labs CBC & Chem 7: 06/04/19 09:44 06/04/19 09:44 Labs: Abnormal Lab Results - Last 24 Hours (Table) 06/03/19 06/03/19 06/03/19 Range/Units 12:14 17:18 20:51 POC Glucose (mg/dL) 201 H 247 H 311 H (75-99) mg/dL 06/04/19 06/04/19 Range/Units 02:14 06:58 POC Glucose (mg/dL) 136 H 220 H (75-99) mg/dL Assessment and Plan Plan: 1. Fall with possible syncopal episode. Patient on athletic monitor, cardiology consult, echocardiogram and EKG has been ordered and pacemaker to be interrogated. Obtain carotid Doppler. Concern that this could be related to hypoglycemia versus vasovagal or arrhythmia. monitoring analyst will be discontinued PT and OT consults. 2. Urinary retention requiring Toledo catheter placement most likely secondary to constipation. Toledo discontinued. Monitor postvoid residuals. 3. Constipation with fecal impaction status post disimpaction. Continue Senokot 2 daily. Stop IV fluids. Hold Bumex and Zaroxolyn until tomorrow. 4. Underlying dementia. 5. Diabetes mellitus type 2 with labile blood sugars, may have contributed to fall. Toujeo will be discontinued for now. Continue Janumet 50/500 twice daily. 6. Paroxysmal atrial fibrillation. Continue Coumadin at home dosing. Recheck INR tomorrow. 7. Macular degeneration with injections done on Tuesday, stable continue eyedrops. 8. History of CVA, stable. 9. Hyperlipidemia. Currently off statin. 10. History of DVT, stable. 11. Chronic low back pain and compression fractures secondary to severe osteoporosis, stable. 12. Chronic systolic heart failure. Hold Lasix and Zaroxolyn until tomorrow. 13. DVT prophylaxis. Continue Coumadin. 14. GI prophylaxis. Protonix. Discharge plan: Subacute rehab at [facility] Impression and plan of care have been directed as dictated by the signing trent maddox. Sameera Ward nurse practitioner acting as scribe for signing physician.
[2019-06-04 16:59] LABS: Glucose,Whole Blood 374 mg/dL (75-99)
[2019-06-04] MEDS ORDERED: WARFARIN 3 MG TAB PO ONE (18:00)
--- NOTE | 2019-06-04 18:35 | XR ---
EXAMINATION TYPE: XR abdomen 2V DATE OF EXAM: 06/04/2019 CLINICAL HISTORY: Diffuse tenderness and distention. TECHNIQUE: Supine, upright, and left side down lateral decubitus views of the abdomen are obtained. COMPARISON: Abdominal x-ray from yesterday. CT abdomen and pelvis from 3 days earlier. FINDINGS: Some paucity of small bowel gas redemonstrated. Visualized gas pattern nondistended small bowel loops. Gas and fecal material in predominant nondistended colon lower abdomen and pelvis appear s slightly more prominent colonic loops upper to midabdomen with air-fluid levels redemonstrated. Persisting cardiomegaly with multi lead pacemaker and small left pleural effusion osseous structures are demineralized with overlying vascular calcification. No pneumoperitoneum. IMPRESSION: Overall nonspecific but favor nonobstructive bowel gas pattern. Improved colonic fecal r etention since admission.
[2019-06-04 19:55] LABS: Glucose,Whole Blood 425 mg/dL (75-99)
[2019-06-04] MEDS ORDERED: INSULIN ASPART (NovoLOG) 100 UNIT/ML VIAL SQ ONE (20:09)
[2019-06-05 07:21] LABS: Glucose,Whole Blood 273 mg/dL (75-99)
[2019-06-05] MEDS: INSULIN ASPART (NovoLOG) 100 UNIT/ML VIAL SQ SCH ×4 (07:50→21:57)
[2019-06-05] MEDS: VIT A,C & E-LUTEIN-MINERALS 1 EACH TAB PO SCH ×2 (07:51→21:56)
[2019-06-05] MEDS: SENNOSIDES-DOCUSATE SODIUM 1 EACH TAB PO SCH (07:51)
[2019-06-05] MEDS: LINAGLIPTIN 5 MG TABLET PO SCH (07:51)
[2019-06-05] MEDS: SIMETHICONE 80 MG CHEWABLE PO SCH ×2 (07:51→21:56)
[2019-06-05] MEDS: BUMETANIDE 1 MG TAB PO SCH (07:52)
[2019-06-05] MEDS: PANTOPRAZOLE 40 MG TABLET PO SCH (07:52)
[2019-06-05] MEDS: POTASSIUM CHLORIDE ER 20 MEQ TAB.ER PO SCH (07:52)
[2019-06-05] MEDS: metFORMIN 500 MG TAB PO SCH ×2 (07:52→21:56)
[2019-06-05 08:28] LABS: INR 2.8 (<1.2); Prothrombin Time 27.2 sec (9.0-12.0)
[2019-06-05] MEDS ORDERED: METOLAZONE 2.5 MG TAB PO SCH (09:00)
[2019-06-05] MEDS: INSULIN DETEMIR (LEVEMIR) 100 UNIT/ML SYR SQ SCH (09:33)
[2019-06-05 12:11] LABS: Glucose,Whole Blood 296 mg/dL (75-99)
--- NOTE | 2019-06-05 15:28 | P.PN ---
Subjective Progress Note Date: 06/05/19 This is an 84-year-old female patient of Dr. Pope with past medical history of paroxysmal atrial fibrillatio on Coumadin, hyperlipidemia, diabetes mellitus type 2, DVT in the left lower extremity and left upper extremity after pacer maker wire manipulation, macular degeneration, ovarian cancer status post total hysterectomy, skin cancer, osteoporosis and compression fractures, chronic constipation. Patient had a hospitalization in January 2019 for abdominal pain secondary to small bowel obstruction and severe fecal impaction. Patient was treated with enemas with resolution. Patient was brought in to [facility] emergency center by EMS from [facility] where she resides alone. resides at [facility]. Daughter related to the ER at that patient had a fall and was found by the staff on the floor with a phone next to her. She had her lunch delivered around 1220 and patient was found at 4:50 in the afternoon on the floor. Patient is unable to give any reliable information but it does appear the patient may have had a syncopal episode. There is also concern for dementia. Patient is noted to have significant ecchymosis to the bilateral lower extremities. Patient was unable to recall when she had her last bowel movement or was able to urinate. Abdomen has increased in size over 2 days since the daughter last saw the patient. In the emergency center, patient was afebrile, heart rate 92, blood pressure 118/72, pulse ox 95% on room air. WBC 13.5, hemoglobin 10.9, platelet count 129, INR 2.4. Sodium 134, potassium 3.6, chloride 96, CO2 33, BUN 35, creatinine 0.74. Initial blood sugar 90. Patient has had labile blood sugars initially 56 followed by 99 then 51 followed by 207. TSH 1.630, urinalysis was clear with nitrate and leukoesterase negative. CAT scan of the abdomen and pelvis revealed moderate to severe constipation with impaction. Patient was also retaining urine and Toledo catheter was placed with return of large volume of urine around 700 mL. Patient underwent fecal disimpaction while in the emergency center. No blood or tarriness was noted to the stool. Patient was placed on the MedSurg floor and consult requested with cardiology. Echocardiogram and EKG have been ordered and pacemaker to be interrogated. 06/02: The patient is complaining of some abdominal discomfort. She has abdominal distention today. Toledo catheter is in place which will be discontinued today.. Bowel sounds are hyperactive. Maalox plus added and abdominal x-ray was done. Persistent fecal impaction with rectum distended up to nearly 10 cm wide. Disimpaction is advised. CAT scan the rectal edema wall could be reactive due to venous congestion or could represent ischemic stair coral colitis. Correlate with lactic acid levels. Again disimpaction is advised. A patulous bowel loop probably: Is in the mid abdomen measuring up to 8.4 cm. Close observation is recommended. Fleets enema was ordered followed by milk of molasses enema if no results. 06/03: Patient has been afebrile, heart rate 87, blood pressure 120/58, pulse ox 93% on room air. Blood sugars running anywhere from 136-311. Patient had fleets enema and milk of molasses enema ordered and patient did have 2 bowel movements last evening. Post void residual yesterday afternoon was 320. Postvoid residual this morning for 535 and straight cath was done with return of 800 mL. Patient's abdominal pain is improved today. Telemetry will be discontinued. Discharge plan is for subacute rehab at [facility]. Patient will be ready for discharge on Tuesday. 06/04: Patient is afebrile, heart rate 85, blood pressure 111/58, pulse ox 92% on room air. INR is 2.8. Blood sugars have been elevated and long-acting will be added back at half her normal dose. I yesterday patient was bladder scanned for 500. This morning bladder scan for 300. She did have 4 bowel movements last evening and 2 this morning. Abdomen is soft without bloating today. Patient h as had no nausea or vomiting. She is eating adequately approximate 50% of her meals. Anticipate discharge to [facility] tomorrow. Objective - Vital Signs Vital signs: Vital Signs Temp 97.0 F L 06/05/19 05:00 Pulse 85 06/05/19 05:00 Resp 16 06/05/19 05:00 BP 111/58 06/05/19 05:00 Pulse Ox 92 L 06/05/19 05:00 Intake & Output 06/04/19 06/05/19 06/05/19 18:59 06:59 18:59 Intake Total 1180 Output Total 1974 648 Balance -1974 532 Intake: Oral 1180 Output: Urine 525 250 Straight 250 Uretheral (Toledo) 525 Post Void Residual 1450 398 Other: Voiding Method Bedside Commode Bedside Commode Diaper Diaper # Voids 1 2 # Bowel Movements 1 1 - Exam Review of Systems Constitutional: Reports fatigue, Reports poor appetite, Denies chills, Denies fever Eyes: denies blurred vision, denies pain Ears, nose, mouth and throat: Reports vertigo, Denies dysphagia, Denies headache, Denies nasal congestion, Denies nasal discharge, Denies sore throat Cardiovascular: Denies chest pain, Denies shortness of breath Respiratory: Denies cough, Denies dyspnea, Denies respiratory infections, Denies wheezing Gastrointestinal: Reports constipation-resolving, denies bloating Denies abdominal pain, Denies BRBPR, Denies diarrhea, Denies melena, Denies nausea, Denies vomiting Genitourinary: Reports urinary retention, Denies dysuria, Denies hematuria Menstruation: Reports post hysterectomy Musculoskeletal: Reports frequent falls, Reports gait dysfunction, Reports muscle weakness, Denies myalgias Integumentary: Reports darkening of skin, Denies pruritus, Denies rash, Denies wounds Neurological: Reports gait dysfunction, Denies change in mentation, Denies change in speech, Denies numbness, Denies weakness Psychiatric: Denies anxiety, Denies depression Endocrine: Denies fatigue, Denies weight change Physical examination Gen: This is an 84-year-old thin female. Patient is resting in bed appears to be somewhat comfortable. HEENT: Head is atraumatic, normocephalic. Pupils equal, round. Sclerae is anicteric. NECK: Supple. No JVD. No lymphadenopathy. No thyromegaly. LUNGS: Clear to auscultation. No wheezes or rhonchi. No intercostal retractions. HEART: Regular rate and rhythm. Systolic ejection murmur. ABDOMEN: Abdomen is soft. Bowel sounds are normal. No masses. No tenderness. EXTREMITIES: No pedal edema. No calf tenderness. Dorsalis pedis +2 bilaterally. Significant ecchymosis to bilateral lower extremities. NEUROLOGICAL: Patient is awake, alert and oriented to person. Cranial nerves 2 through 12 are grossly intact. - Labs CBC & Chem 7: 06/04/19 09:44 06/04/19 09:44 Labs: Abnormal Lab Results - Last 24 Hours (Table) 06/04/19 06/04/19 06/04/19 Range/Units 08:45 09:44 09:44 RBC 3.65 L (3.80-5.40) m/uL Hgb 10.6 L (11.4-16.0) gm/dL Hct 33.3 L (34.0-46.0) % Plt Count 139 L (150-450) k/uL PT 15.9 H (9.0-12.0) sec INR 1.6 H (<1.2) Sodium 135 L (137-145) mmol/L Carbon Dioxide 31 H (22-30) mmol/L BUN 22 H (7-17) mg/dL Glucose 174 H (74-99) mg/dL POC Glucose (mg/dL) (75-99) mg/dL Total Protein 5.4 L (6.3-8.2) g/dL Albumin 2.7 L (3.5-5.0) g/dL 06/04/19 06/04/19 06/04/19 Range/Units 11:36 16:55 19:54 RBC (3.80-5.40) m/uL Hgb (11.4-16.0) gm/dL Hct (34.0-46.0) % Plt Count (150-450) k/uL PT (9.0-12.0) sec INR (<1.2) Sodium (137-145) mmol/L Carbon Dioxide (22-30) mmol/L BUN (7-17) mg/dL Glucose (74-99) mg/dL POC Glucose (mg/dL) 194 H 374 H 425 H (75-99) mg/dL Total Protein (6.3-8.2) g/dL Albumin (3.5-5.0) g/dL 06/05/19 06/05/19 Range/Units 07:14 07:55 RBC (3.80-5.40) m/uL Hgb (11.4-16.0) gm/dL Hct (34.0-46.0) % Plt Count (150-450) k/uL PT 27.2 H (9.0-12.0) sec INR 2.8 H (<1.2) Sodium (137-145) mmol/L Carbon Dioxide (22-30) mmol/L BUN (7-17) mg/dL Glucose (74-99) mg/dL POC Glucose (mg/dL) 273 H (75-99) mg/dL Total Protein (6.3-8.2) g/dL Albumin (3.5-5.0) g/dL Assessment and Plan Plan: 1. Fall with possible syncopal episode. Patient on monitoring tech, cardiology consult, echocardiogram and EKG has been ordered and pacemaker to be interrogated. Carotid Doppler as above. Concern that this could be related to hypoglycemia versus vasovagal or arrhythmia. bus driver/monitor will be discontin ued PT and OT consults. 2. Urinary retention requiring Toledo catheter placement most likely secondary to constipation. Toledo discontinued. Monitor postvoid residuals. 3. Constipation with fecal impaction status post disimpaction. Continue Senokot 2 daily. 4. Underlying dementia. 5. Diabetes mellitus type 2 with labile blood sugars, may have contributed to fall. Toujeo will be started at half dose. Continue Janumet 50/500 twice daily. 6. Paroxysmal atrial fibrillation. Continue Coumadin at home dosing. Recheck INR tomorrow. 7. Macular degeneration with injections done on Tuesday, stable continue eyedrops. 8. History of CVA, stable. 9. Hyperlipidemia. Currently off statin. 10. History of DVT, stable. 11. Chronic low back pain and compression fractures secondary to severe osteoporosis, stable. 12. Chronic systolic heart failure. Bumex and Zaroxolyn resumed. 13. DVT prophylaxis. Continue Coumadin. 14. GI prophylaxis. Protonix. Discharge plan: Subacute rehab at [facility] on Tuesday Impression and plan of care have been directed as dictated by the signing physician. Sameera Ward nurse practitioner acting as scribe for signing physician.
[2019-06-05 17:20] LABS: Glucose,Whole Blood 229 mg/dL (75-99)
[2019-06-05] MEDS ORDERED: WARFARIN 1 MG TAB PO ONE (18:00)
[2019-06-05] MEDS ORDERED: WARFARIN 3 MG TAB PO SCH (18:00)
[2019-06-05 20:08] LABS: Glucose,Whole Blood 179 mg/dL (75-99)
[2019-06-05] MEDS ORDERED: MAGNESIUM OXIDE 400 MG TAB PO SCH (21:00)
[2019-06-06 05:37] VITALS: TEMP 98.1
[2019-06-06 07:40] LABS: Glucose,Whole Blood 327 mg/dL (75-99)
--- NOTE | 2019-06-06 08:54 | P.DS ---
Providers Date of admission: 06/02/19 00:00 Expected date of discharge: 06/06/19 Attending physician: Estefani Ramos Consults: 06/01/19 23:18 Consult Physician Stat Consulting Provider: Atif Hollis Consult Reason/Comments: Syncope, weakness, fall Do you want consulting provider notified?: Yes Primary care physician: Noemi Pope Hospital Course: This is an 84-year-old female patient of Dr. Pope with past medical history of paroxysmal atrial fibrillatio on Coumadin, hyperlipidemia, diabetes mellitus type 2, DVT in the left lower extremity and left upper extremity after pacer maker wire manipulation, macular degeneration, ovarian cancer status post total hysterectomy, skin cancer, osteoporosis and compression fractures, chronic constipation. Patient had a hospitalization in January 2019 for abdominal pain secondary to small bowel obstruction and severe fecal impaction. Patient was treated with enemas with resolution. Patient was brought in to [facility] emergency center by EMS from [facility] where she resides alone. resides at [facility]. Daughter related to the ER at that patient had a fall and was found by the staff on the floor with a phone next to her. She had her lunch delivered around 1220 and patient was found at 4:50 in the afternoon on the floor. Patient is unable to give any reliable information but it does appear the patient may have had a syncopal episode. There is also concern for dementia. Patient is noted to have significant ecchymosis to the bilateral lower extremities. Patient was unable to recall when she had her last bowel movement or was able to urinate. Abdomen has increased in size over 2 days since the daughter last saw the patient. In the emergency center, patient was afebrile, heart rate 92, blood pressure 118/72, pulse ox 95% on room air. WBC 13.5, hemoglobin 10.9, platelet count 129, INR 2.4. Sodium 134, potassium 3.6, chloride 96, CO2 33, BUN 35, creatinine 0.74. Initial blood sugar 90. Patient has had labile blood sugars initially 56 followed by 99 then 51 followed by 207. TSH 1.630, urinalysis was clear with nitrate and leukoesterase negative. CAT scan of the abdomen and pelvis revealed moderate to severe constipation with impaction. Patient was also retaining urine and Toledo catheter was placed with return of large volume of urine around 700 mL. Patient underwent fecal disimpaction while in the emergency center. No blood or tarriness was noted to the stool. Patient was placed on the MedSur floor and consult requested with cardiology. E chocardiogram and EKG have been ordered and pacemaker to be interrogated. 06/02: The patient is complaining of some abdominal discomfort. She has abdominal distention today. Toledo catheter is in place which will be discontinued today.. Bowel sounds are hyperactive. Maalox plus added and abdominal x-ray was done. Persistent fecal impaction with rectum distended up to nearly 10 cm wide. Disimpaction is advised. CAT scan the rectal edema wall could be reactive due to venous congestion or could represent ischemic stair coral colitis. Correlate with lactic acid levels. Again disimpaction is advised. A patulous bowel loop probably: Is in the mid abdomen measuring up to 8.4 cm. Close observation is recommended. Fleets enema was ordered followed by milk of molasses enema if no results. 06/03: Patient has been afebrile, heart rate 87, blood pressure 120/58, pulse ox 93% on room air. Blood sugars running anywhere from 136-311. Patient had fleets enema and milk of molasses enema ordered and patient did have 2 bowel movements last evening. Post void residual yesterday afternoon was 320. Postvoid residual this morning for 535 and straight cath was done with return of 800 mL. Patient's abdominal pain is improved today. Telemetry will be discontinued. Discharge plan is for subacute rehab at [facility]. Patient will be ready for discharge on Tuesday. 06/04: Patient is afebrile, heart rate 85, blood pressure 111/58, pulse ox 92% on room air. INR is 2.8. Blood sugars have been elevated and long-acting will be added back at half her normal dose. I yesterday patient was bladder scanned for 500. This morning bladder scan for 300. She did have 4 bowel movements last evening and 2 this morning. Abdomen is soft without bloating today. Patient has had no nausea or vomiting. She is eating adequately approximate 50% of her meals. Anticipate discharge to [facility] tomorrow. 06/05: Patient has been afebrile, heart rate 98, blood pressure 127/71, pulse ox 93% on room air. Repeat lab work reveals WBC 12.8, hemoglobin 11.2, INR 3.2. Sodium 130, potassium 4.0, chloride 95, CO2 24, BUN 27, creatinine 0.94, blood sugar 392. Capillary blood glucose running between 179-367. Patient will be resumed back on 21 units of long-acting insulin. Abdomen is soft, no nausea or vomiting. Patient will be discharged to [facility] once all arrangements are completed. Discharge diagnoses: 1. Fall with possible syncopal episode. Spell vasovagal episode. Patient has had no arrhythmia on teletypesetter monitor, pacemaker was interrogated. 2. Urinary retention requiring Toledo catheter placement most likely secondary to constipation. 3. Constipation with fecal impaction status post disimpaction. 4. Vascular dementia. 5. Diabetes mellitus type 2 with labile blood sugars, may have contributed to fall. 6. Paroxysmal atrial fibrillation. 7. Macular degeneration with injections done on Tuesday, stable continue eyedrops. 8. History of CVA, stable. 9. Hyperlipidemia. 10. History of DVT, stable. 11. Chronic low back pain and compression fractures secondary to severe osteoporosis, stable. 12. Chronic systolic heart failure. Discharge plan: [facility]. Impression and plan of care have been directed as dictated by the signing physician. Sameera Ward nurse practitioner acting as scribe for signing physician. Patient Condition at Discharge: Good Plan - Discharge Summary New Discharge Prescriptions: New Magnesium Hydroxide [Milk of Magnesia Concentrate] 2,400 mg PO DAILY PRN ml PRN Reason: Constipation Sennosides-Docusate Sodium [Senokot-S] 2 each PO DAILY tab Acetaminophen Tab [Tylenol] 650 mg PO Q6HR PRN tab PRN Reason: Fever And/ Or Pain Continue Metolazone [Zaroxolyn] 2.5 mg PO TUTH Bumetanide [BUMEX] 2 mg PO DAILY Vit C/E/Zn/Coppr/Lutein/Zeaxan [Preservision Areds 2 Softgel] 1 cap PO BID Insulin Glargine,Hum.rec.anlog [Toumatt Solostar] 21 units SQ DAILY Potassium Chloride [Klor-Con 20] 20 meq PO DAILY sitaGLIPtin PHOS/metFORMIN HCL [Janumet 50-500 mg Tablet] 1 tab PO BID Warfarin Sodium [Coumadin] 3 mg PO TUTH INSULIN ASPART (NovoLOG) [NovoLOG (formulary)] See Protocol SQ AC-TID Magnesium Oxide [Mag-Ox] 400 mg PO HS Warfarin [Coumadin] 1.5 mg PO SUMOWEFRSA Cholecalciferol (Vitamin D3) [Vitamin D3] 2,000 unit PO DAILY Discontinued Sennosides [Senna] 17.2 mg PO HS Discharge Medication List Bumetanide [BUMEX] 2 mg PO DAILY 10/02/15 [History] Metolazone [Zaroxolyn] 2.5 mg PO TUTH 10/02/15 [History] Vit C/E/Zn/Coppr/Lutein/Zeaxan [Preservision Areds 2 Softgel] 1 cap PO BID 12/12/15 [History] INSULIN ASPART (NovoLOG) [NovoLOG (formulary)] See Protocol SQ AC-TID 10/14/18 [History] Insulin Glargine,Hum.rec.anlog [Toujeo Solostar] 21 units SQ DAILY 10/14/18 [History] Potassium Chloride [Klor-Con 20] 20 meq PO DAILY 10/14/18 [History] Warfarin Sodium [Coumadin] 3 mg PO TUTH 10/14/18 [History] sitaGLIPtin PHOS/metFORMIN HCL [Janumet 50-500 mg Tablet] 1 tab PO BID 10/14/18 [History] Magnesium Oxide [Mag-Ox] 400 mg PO HS 01/30/19 [History] Cholecalciferol (Vitamin D3) [Vitamin D3] 2,000 unit PO DAILY 06/02/19 [History] Warfarin [Coumadin] 1.5 mg PO SUMOWEFRSA 06/02/19 [History] Acetaminophen Tab [Tylenol] 650 mg PO Q6HR PRN tab 06/06/19 [Rx] Magnesium Hydroxide [Milk of Magnesia Concentrate] 2,400 mg PO DAILY PRN ml 06/06/19 [Rx] Sennosides-Docusate Sodium [Senokot-S] 2 each PO DAILY tab 06/06/19 [Rx] Follow up Appointment(s)/Referral(s): Noemi Pope MD [Primary Care Provider] - 1 Week (at [facility]) Patient Instructions/Handouts: Fall Prevention (ED) Activity/Diet/Wound Care/Special Instructions: Patient will be admitted Discharge Disposition: TRANSFER TO SNF/ECF
[2019-06-06 09:27] LABS: INR 3.2 (<1.2); Prothrombin Time 31.4 sec (9.0-12.0)
[2019-06-06] MEDS: INSULIN ASPART (NovoLOG) 100 UNIT/ML VIAL SQ SCH ×2 (09:27→12:56)
[2019-06-06] MEDS: INSULIN DETEMIR (LEVEMIR) 100 UNIT/ML SYR SQ SCH (09:28)
[2019-06-06] MEDS: LINAGLIPTIN 5 MG TABLET PO SCH (09:29)
[2019-06-06] MEDS: POTASSIUM CHLORIDE ER 20 MEQ TAB.ER PO SCH (09:29)
[2019-06-06] MEDS: BUMETANIDE 1 MG TAB PO SCH (09:29)
[2019-06-06] MEDS: SIMETHICONE 80 MG CHEWABLE PO SCH (09:29)
[2019-06-06] MEDS: SENNOSIDES-DOCUSATE SODIUM 1 EACH TAB PO SCH (09:29)
[2019-06-06] MEDS: metFORMIN 500 MG TAB PO SCH (09:29)
[2019-06-06] MEDS: PANTOPRAZOLE 40 MG TABLET PO SCH (09:29)
[2019-06-06] MEDS: VIT A,C & E-LUTEIN-MINERALS 1 EACH TAB PO SCH (09:30)
[2019-06-06 09:34] LABS: HCT 36.2 % (34.0-46.0); HGB 11.2 gm/dL (11.4-16.0); Hypochromasia Moderate; MCH 29.6 pg (25.0-35.0); MCHC 30.8 g/dL (31.0-37.0); Mean Platelet Volume 8.3; Platelet Count 212 k/uL (150-450); RBC 3.78 m/uL (3.80-5.40); WBC 12.8 k/uL (3.8-10.6)
[2019-06-06 09:44] LABS: Calcium 8.2 mg/dL (8.4-10.2)
[2019-06-06 11:44] LABS: Glucose,Whole Blood 367 mg/dL (75-99)
[2019-06-06 12:50] VITALS: BP 131/59; PULSE 93; RESP 18
[2019-06-06] MEDS ORDERED: WARFARIN 1 MG TAB PO ONE (18:00)
[2019-06-07] MEDS ORDERED: INSULIN DETEMIR (LEVEMIR) 100 UNIT/ML SYR SQ SCH (09:00)
== END 2019-06-06 16:01 | DRG 389 ==
LOC: EC 17:25 → 5NMEDONC 06-02 → OBSVTOIN 06-03 09:16
PROVIDERS: ADMIT Family Medicine; ATTEND Family Medicine
PROC: 4B02XTZ Measurement of Cardiac Defibrillator, External Approach (ICD-10-PCS; principal; 2019-06-02)
DX: K56.609 Unspecified intestinal obstruction, unspecified as to partial versus complete obstruction (principal); I50.22 Chronic systolic (congestive) heart failure; K56.41 Fecal impaction; E11.649 Type 2 diabetes mellitus with hypoglycemia without coma; I49.5 Sick sinus syndrome; I48.0 Paroxysmal atrial fibrillation; E78.5 Hyperlipidemia, unspecified; D72.829 Elevated white blood cell count, unspecified; R55 Syncope and collapse; D64.9 Anemia, unspecified; F01.50 Vascular dementia, unspecified severity, without behavioral disturbance, psychotic disturbance, mood disturbance, and anxiety; G89.29 Other chronic pain; M54.5 Low back pain; H35.3130 Nonexudative age-related macular degeneration, bilateral, stage unspecified; R33.9 Retention of urine, unspecified; M81.0 Age-related osteoporosis without current pathological fracture; K59.09 Other constipation; K57.90 Diverticulosis of intestine, part unspecified, without perforation or abscess without bleeding; K64.9 Unspecified hemorrhoids; K62.3 Rectal prolapse; I89.0 Lymphedema, not elsewhere classified; Z79.4 Long term (current) use of insulin; Z79.01 Long term (current) use of anticoagulants; Z79.899 Other long term (current) drug therapy; Z86.73 Personal history of transient ischemic attack (TIA), and cerebral infarction without residual deficits; Z86.718 Personal history of other venous thrombosis and embolism; Z85.828 Personal history of other malignant neoplasm of skin; Z90.710 Acquired absence of both cervix and uterus; Z85.43 Personal history of malignant neoplasm of ovary; Z86.79 Personal history of other diseases of the circulatory system; Z87.310 Personal history of (healed) osteoporosis fracture; Z86.010 Personal history of colon polyps; Z95.810 Presence of automatic (implantable) cardiac defibrillator; Z87.442 Personal history of urinary calculi; Z87.19 Personal history of other diseases of the digestive system; Z86.69 Personal history of other diseases of the nervous system and sense organs; Z98.42 Cataract extraction status, left eye; Z98.41 Cataract extraction status, right eye; Z98.890 Other specified postprocedural states; Z88.1 Allergy status to other antibiotic agents; Z88.8 Allergy status to other drugs, medicaments and biological substances; W19.XXXA Unspecified fall, initial encounter; Z80.41 Family history of malignant neoplasm of ovary; Z82.3 Family history of stroke
CPT/HCPCS: 36415; 51702; 70450; 71046; 72125; 74018; 74019; 74177; 80048; 80053; 81003; 82550; 82607; 84443; 85025; 85027; 85610; 85730; 93005; 93306; 93880; 99285